=== PATIENT | male | born 1965 | race Caucasian/White ===

== ENCOUNTER 2019-05-12 12:09 | Inpatient (IN) ==
[2019-05-12] MEDS ORDERED: IOPAMIDOL 100 ML BOTTLE IV ONE (12:10)
[2019-05-12 13:12] LABS: Basophils # (Auto) 0.08 K/mcL (0.00-0.30); Basophils % (Auto) 0.4 % (0.0-2.0); Eosinophils # (Auto) 0.23 K/mcL (0.00-0.70); Eosinophils % (Auto) 1.3 % (0.0-7.0); Granulocytes % (Auto) 80.7 % (38.0-78.0); Hematocrit 41.6 % (40.1-51.0); Hemoglobin 14.1 g/dL (13.7-17.5); Lymphocytes % (Auto) 10.1 % (15.5-49.0); Mean Cell Volume 89.7 fL (80.0-100.0); Mean Corpuscular HGB Conc 33.9 g/dL (31.0-36.0); Mean Platelet Volume 9.9 fL (7.4-10.4); Monocytes # (Auto) 1.34 K/mcL (0.10-0.90); Monocytes % (Auto) 7.5 % (1.0-12.0); Platelet Count 319 K/mcL (140-440); RBC 4.64 M/mcL (4.63-6.08); Red Cell Distribution Width 12.6 % (11.5-14.5); WBC 17.9 K/mcL (4.50-11.00)
[2019-05-12 13:20] LABS: POC Blood Urea Nitrogen 17 mg/dl (6-20); POC CO2 26 mmol/L (22-30); POC Calcium, Ionized 1.13 mmol/L (1.16-1.32); POC Chloride 97 mmol/L (96-108); POC Creatinine 0.9 mg/dl (0.7-1.2); POC Glucose, Random 107 mg/dL (70-105); POC Potassium 4.3 mmol/L (3.3-5.1); POC Sodium 133 mmol/L (133-145)
[2019-05-12 13:36] LABS: ALT/SGPT 15 U/l (0-40); AST/SGOT 13 U/l (0-37); Alkaline Phosphatase 71 U/L (39-117); Bilirubin,Total 0.5 mg/dL (0.0-1.0); Blood Urea Nitrogen 16 mg/dl (6-20); Calcium 9.6 mg/dl (8.6-10.4); Carbon Dioxide 24 mmol/L (22-30); Globulin 4.1 gm/dL (2.2-3.7); Glomerular Filtration Rate 96; Glucose 105 mg/dL (70-105)
[2019-05-12 13:38] LABS: Chloride 95 mmol/L (96-108)
--- NOTE | 2019-05-12 14:00 | Emergency Department Note ---
Abdominal Pain HPI - General Chief Complaint: Abdominal Pain Stated Complaint: abd pain, possible bowel obstruction Time Seen by Provider: 05/12/19 12:26 Source: patient Mode of arrival: ambulatory Limitations: no limitations - History of Present Illness HPI Narrative: 54-year old patient presenting to the [facility] emergency department with a chief complaint of abdominal pain. Patient reports the pain is acute. Patient has had symptoms for 1-2 days. Patient noting pain is cramping. Patient reporting pain is moderate. Patient with exacerbating factors of nothing. Patient with ameliorating factors of nothing. Patient with associated symptoms of bloating and no BM. Patient without associated symptoms of nausea, vomiting, diarrhea, fever, blood in stool, hematemesis, dysuria, frequency, hematuria, weight loss, cough, shortness of breath, orthopnea, exertional component. - Related Data Home Medications Medication Instructions Recorded Confirmed No Known Home Meds 10/04/18 05/12/19 Allergies Allergy/AdvReac Type Severity Reaction Status Date / Time Seasonal Allergy Unknown unknown Uncoded 10/04/18 09:55 Review of Systems All systems ED: reviewed and negative except as stated. Abdominal Pain PMH - Past Medical History PMFSH Narrative: All Active Problems Bowel obstruction (Acute) - Social History Smoking status: Former smoker Physical Exam Vital signs are assessed for evidence of hemodynamic instability. General: Alert, interactive, appropriate Head: Atraumatic, normocephalic Eyes: Extraocular movements intact, PERRLA Neck: Trachea midline, full range of motion Chest: Symmetrical chest wall rise, clear to auscultation bilateral Cardiovascular: Patient with excellent perfusion to the extremities, tachycardia Abdomen: Patient primarily with distention Extremities: Full range of motion joints, warm well perfused Neuro: Alert, oriented x3, cranial nerves II through XII grossly intact, normal gait Psychiatric: Normal affect normal mood Limitations: no limitations Course Vital Signs Temperature 97.7 F 05/12/19 12:09 Pulse Rate 111 H 05/12/19 12:09 Respiratory Rate 18 05/12/19 12:09 Blood Pressure 119/83 05/12/19 12:09 Pulse Oximetry (%) 99 05/12/19 12:09 Temperature 98.7 F 05/12/19 19:47 Pulse Rate 99 H 05/12/19 19:47 Respiratory Rate 18 05/12/19 19:47 Blood Pressure 108/65 05/12/19 19:47 Pulse Oximetry (%) 94 05/12/19 19:47 Abdominal Pain - MDM Narrative Medical decision making narrative: Initial work-up for this issue included consideration for the following laboratory evaluation CBC, CMP, as well as imaging. Pt sent in with concern for plain film as outpatient and symptoms suggestive of SBO. CT abd with contrast obtained. Pt with SBO. I discussed the case with Dr. Harkins and the consensus is to admit the pt to the hospital for ongoing inpatient evaluation and management. - Lab Data Result diagrams: 05/12/19 12:45 05/12/19 12:45 Lab Results 05/12/19 05/12/19 05/12/19 Range/Units 12:45 12:45 12:45 WBC 17.9 H (4.50-11.00) K/mcL RBC 4.64 (4.63-6.08) M/mcL Hgb 14.1 (13.7-17.5) g/dL Hct 41.6 (40.1-51.0) % POC Hct 44.0 (41.0-55.0) % MCV 89.7 (80.0-100.0) fL MCH 30.4 (26.0-34.0) pg MCHC 33.9 (31.0-36.0) g/dL RDW 12.6 (11.5-14.5) % Plt Count 319 (140-440) K/mcL MPV 9.9 (7.4-10.4) fL Gran % 80.7 H (38.0-78.0) % Lymph % (Auto) 10.1 L (15.5-49.0) % [place] % (Auto) 7.5 (1.0-12.0) % Eos % (Auto) 1.3 (0.0-7.0) % Baso % (Auto) 0.4 (0.0-2.0) % Gran # 14.40 H (1.80-8.00) K/mcL Lymph # (Auto) 1.80 (1.50-4.80) K/mcL [place] # (Auto) 1.34 H (0.10-0.90) K/mcL Eos # (Auto) 0.23 (0.00-0.70) K/mcL Baso # (Auto) 0.08 (0.00-0.30) K/mcL POC Sodium 133 (133-145) mmol/L Sodium 134 (133-145) mmol/L POC Potassium 4.3 (3.3-5.1) mmol/L Potassium 4.4 (3.3-5.1) mmol/L POC Chloride 97 (96-108) mmol/L Chloride 95 L (96-108) mmol/L Carbon Dioxide 24 (22-30) mmol/L POC Total CO2 26 (22-30) mmol/L Anion Gap 15.0 (8-16) POC BUN 17 (6-20) mg/dl BUN 16 (6-20) mg/dl Creatinine 0.9 (0.7-1.2) mg/dl POC Creatinine 0.9 (0.7-1.2) mg/dl GFR Calculation 96 Glucose 105 (70-105) mg/dL POC Glucose 107 H (70-105) mg/dL Calcium 9.6 (8.6-10.4) mg/dl POC WB Ioniz Calcium 1.13 L (1.16-1.32) mmol/L Total Bilirubin 0.5 (0.0-1.0) mg/dL AST 13 (0-37) U/l ALT 15 (0-40) U/l Alkaline Phosphatase 71 (39-117) U/L Total Protein 8.1 (5.9-8.4) gm/dL Albumin 4.0 (3.2-5.2) gm/dL Globulin 4.1 H (2.2-3.7) gm/dL Albumin/Globulin Ratio 1.0 (1.0-2.3) TSH 0.83 (0.27-5.01) uIU/ml Disposition Pt seen by [employer]/PA only: No Clinical Impression: Small bowel obstruction Abdominal pain Qualifiers: Abdominal location: generalized Qualified Code(s): R10.84 - Generalized abdominal pain Disposition: Xfer As Inpt ([facility]) Condition: Fair
--- NOTE | 2019-05-12 14:11 | Cat Scan Report ---
CLINICAL INFORMATION: Abdominal pain COMPARISON: None. TECHNIQUE: Following enteric contrast, 80 cc of Isovue-370 were injected intravenously, and 60 seconds later, 0.625 mm helical slices were obtained from the mid heart through the subtrochanteric regions. Following reconstruction, 2.5 mm sagittal, coronal and axial reformatted images were processed and reviewed at bone, lung and soft tissue windows. Five minutes later, 0.625 mm helical slices were obtained from the mid heart through the kidneys and viewed at soft tissue windows.The exam was performed using radiation dose optimization techniques including, but not limited to, automated exposure control, adjustment of the mA and/or kV according to patient size and use of iterative reconstruction technique. FINDINGS: Lung bases show no abnormality - no effusion. The visualized heart is grossly normal. Abdominal images show a few small simple cysts in the liver ranging up to 8 mm in the left hepatic lobe. Gallbladder and bile ducts are normal. Both kidneys, adrenal glands, spleen and pancreas are normal in size, configuration and attenuation without focal lesion. The aorta is normal diameter of the scattered calcific plaque in the abdominal aorta. Aortic branches are grossly normal Pelvic images show prostate is mildly enlarged with a transverse dimension 5.1 cm. Urinary bladder is normal. The stomach, duodenum, jejunum and proximal ileum are moderately dilated also with thickening of the wall and flank circulares folds. Transition point is in the mid ileum in the central false pelvis (coronal image 52 and axial image 82. The ileum distal to this point is decompressed. There is less than normal amount stool present in the colon. There is a 6.3 cm interloop abscess in the central false pelvis which drapes around dilated small bowel loops and is also juxtaposed to the the superior sigmoid colon. Sigmoid colon also demonstrates moderate diverticulosis. Moderate free fluid and inflammation in the perisigmoid fat either represents diverticulitis or secondary to small bowel inflammation. Bone windows show grade 1 L4-5 spondylolisthesis with broad disc protrusion resulting in moderate central canal severe bilateral IV foraminal narrowing impinging exiting L4 nerve roots. IMPRESSION: 1. Partial small bowel obstruction of the mid ileum possibly related to adhesion or stricture. Small bowel loops also demonstrate moderate thickening of the wall and plicae labeling associate folds with adjacent mesenteric inflammation. Patient could have infectious or inflammatory enteritis. A 6 cm abscess in the central false pelvis juxtaposed to both small bowel loops and the superior sigmoid colon. 2. Sigmoid diverticulosis. There is also possible additional diverticulitis generating the abscess and pelvic inflammation. 3. Grade 1 L4-5 spondylolisthesis and broad disc protrusion resulting in moderate central canal and severe bilateral IV foraminal narrowing impinging exiting L4 nerve roots Interpreted and Authenticated by: Sheldon Campos 05/12/19
[2019-05-12] MEDS ORDERED: ONDANSETRON 4 MG/2 ML VIAL IV PRN (14:29)
[2019-05-12] MEDS ORDERED: PIPERACILLIN SODIUM/TAZOBACTAM 4.5 GM in DEXTROSE 5% IN WATER 50 ML IV ONE (14:34)
[2019-05-12] MEDS: 0.9 % SODIUM CHLORIDE 1,000 ML IV SCH ×5 (15:49→23:58)
--- NOTE | 2019-05-12 18:16 | General Surg History&Physical ---
History of Present Illness Patient information: Note initiated : 05/12/19 at 6:16 pm Service Date, if different from initiated Date: [] Patient: Ramakrishna Tinajero a 54 y/o M admitted on 05/12/19 for abd pain, possible bowel obstruction. Chief Complaint: [] HPI: Mr. Tinajero is a 54 year old M admitted with pelvic abscess and small bowel obstruction with suspected perforated diverticulitis with abscess.patient gives a one-week history of lower abdominal pain. He states that last he developed severe lower mid abdominal pain that was associated with sweats and chills and fever. The pain continued and worsened throughout the week. He is on able to pass gas or bowel movement since onset of symptoms. He has had severe nausea without vomiting. He's been unable to heat and has had very little to drink since onset of symptoms. Patient was seen in the emergency room and noted to have a tender lower abdomen with white count 17,000. CT of the abdomen showed dilated proximal bowel down to the terminal ileum. There is a 6.3 cm interloop abscess associated with the distal small bowel and the sigmoid colon. There is also free fluid and inflammation in the mesentery of the sigmoid which is possibly primary but may be secondary. Patient has a major pelvic abscess causing small bowel obstruction and distal colonic obstruction. Also. He is counseled for exploratory laparotomy with probable drainage of abscess and potentially segmental sigmoid resection with colostomy. He agrees to proceed with the operation. Review of Systems All systems PM: reviewed and no additional remarkable complaints except as stated (negative except for symptoms noted above) Past History Past medical history: No chronic medical illnesses known but patient has not seen a primary physician Past surgical history: OT IF right femur many years ago Past family history: Mother age 72 without known illness. Father age 75 without known illness. 3 siblings, one of whom has hypertension Past social history: Smoked previously but has not used any tobacco since 2003 No history of alcohol use. Regular use of marijuana Medications and Allergies Home Medications Medication Instructions Recorded Confirmed Type No Known Home Meds 10/04/18 05/12/19 History Allergies Allergy/AdvReac Type Severity Reaction Status Date / Time Seasonal Allergy Unknown unknown Uncoded 10/04/18 09:55 Exam Temp Pulse Resp BP Pulse Ox 97.7 F 106 H 18 132/80 97 05/12/19 16:34 05/12/19 16:34 05/12/19 16:34 05/12/19 16:34 05/12/19 16:34 - General physical appearance well developed, well nourished, no distress - Eyes PERRL, normal ocular movement - ENT normal pinna, normal nares, normal mucosa, no hearing loss, no congestion - Head Head exam IM: Present: atraumatic, normocephalic - Neck no masses, no bruits, trachea midline, no lymphadenopathy, no venous distension - Cardiovascular Cardiovascular exam IM: Present: normal rate and rhythm - Respiratory normal expansion, normal respiratory effort, clear to percussion, clear to a uscultation - Abdomen Abdomen: Present: soft, tender, bowel sounds, masses (tender mass with fullness and lower abdomen above the bladder with associated guarding; active bowel sounds) Hernia: Present: none - Genitourinary Present: normal penis with no external lesions - Integumentary Present: no rash, no growths, no abnormal pigmentation - Neurologic Present: normal coordination, normal sensation - Musculoskeletal Present: normal gait, normal posture - Psychiatric Present: oriented to time, oriented to person, oriented to place, speech is normal, memory intact Assessment and Plan (1) Pelvic abscess in male The abscess is not amenable to percutaneous drainage without intestinal injury. He also has near complete obstruction of small bowel which will need to be released. Patient is counseled for exploratory laparotomy with drainage of the abscess and probable resection of sigmoid with colostomy. He is advised that he will need to have his colostomy for 8-12 weeks before re-anastomosis Status: Acute (2) Perforation of sigmoid colon due to diverticulitis 00. Zosyn 3.375 g IV every 6 hours Check EKG, chest x-ray, baseline labs and thyroid panel Status: Acute (3) Small bowel obstruction Status: Acute
[2019-05-12] MEDS ORDERED: PROMETHAZINE 25 MG/ML VIAL IV PRN (18:27)
[2019-05-12] MEDS: ACETAMINOPHEN 1,000 MG/100 ML BOTTLE IV SCH ×2 (19:23→23:49)
[2019-05-12] MEDS: PIPERACILLIN SODIUM/TAZOBACTAM 3.375 GM in DEXTROSE 5% IN WATER 50 ML IV SCH ×2 (19:32→23:58)
[2019-05-12 20:03] LABS: INR 1.1 (0.9-1.1); Prothrombin Time 14.8 sec (11.9-14.5)
[2019-05-12] MEDS ORDERED: DOCUSATE SODIUM 100 MG CAPSULE PO SCH (21:00)
[2019-05-12] MEDS ORDERED: SENNOSIDES 1 TABLET PO SCH (21:00)
[2019-05-12] MEDS: 0.9 % SODIUM CHLORIDE 10 ML SYRINGE IV SCH (22:21)
[2019-05-13] MEDS: 0.9 % SODIUM CHLORIDE 1,000 ML IV SCH ×5 (01:32→18:55)
[2019-05-13] MEDS: HYDROmorphone 2 MG/ML VIAL IV PRN ×2 (04:39→08:53)
[2019-05-13] MEDS ORDERED: IPRATROPIUM/ALBUTEROL 3 ML AMPUL.NEB NEB PRN ×3 (05:27→19:15)
[2019-05-13] MEDS ORDERED: SCOPOLAMINE 1 PATCH PATCH TOPICAL PRN ×2 (05:27→19:15)
[2019-05-13] MEDS: 0.9 % SODIUM CHLORIDE 10 ML SYRINGE IV SCH ×3 (06:05→21:17)
[2019-05-13] MEDS: ACETAMINOPHEN 1,000 MG/100 ML BOTTLE IV SCH ×4 (06:05→20:44)
[2019-05-13] MEDS: PIPERACILLIN SODIUM/TAZOBACTAM 3.375 GM in DEXTROSE 5% IN WATER 50 ML IV SCH ×4 (06:05→23:11)
[2019-05-13 06:25] LABS: Basophils # (Auto) 0.06 K/mcL (0.00-0.30); Basophils % (Auto) 0.4 % (0.0-2.0); Eosinophils # (Auto) 0.37 K/mcL (0.00-0.70); Eosinophils % (Auto) 2.2 % (0.0-7.0); Hematocrit 34.7 % (40.1-51.0); Hemoglobin 11.6 g/dL (13.7-17.5); Lymphocytes # (Auto) 1.61 K/mcL (1.50-4.80); Lymphocytes % (Auto) 9.7 % (15.5-49.0); Mean Cell Volume 91.6 fL (80.0-100.0); Mean Corpuscular HGB Conc 33.4 g/dL (31.0-36.0); Mean Platelet Volume 10.2 fL (7.4-10.4); Monocytes # (Auto) 1.28 K/mcL (0.10-0.90); Monocytes % (Auto) 7.7 % (1.0-12.0); Platelet Count 274 K/mcL (140-440); RBC 3.79 M/mcL (4.63-6.08); Red Cell Distribution Width 12.8 % (11.5-14.5); WBC 16.6 K/mcL (4.50-11.00)
[2019-05-13 06:43] LABS: ALT/SGPT 13 U/l (0-40); AST/SGOT 13 U/l (0-37); Albumin 3.2 gm/dL (3.2-5.2); Alkaline Phosphatase 61 U/L (39-117); Bilirubin,Direct < 0.2 mg/dL (0.0-0.3); Bilirubin,Total 0.4 mg/dL (0.0-1.0); Blood Urea Nitrogen 14 mg/dl (6-20); Calcium 8.3 mg/dl (8.6-10.4); Carbon Dioxide 22 mmol/L (22-30); Chloride 97 mmol/L (96-108); Globulin 3.3 gm/dL (2.2-3.7); Glomerular Filtration Rate 101; Glucose 82 mg/dL (70-105); Lactate Dehydrogenase 132 U/L (94-250); Phosphorous 3.1 mg/dL (2.7-4.5); Triglycerides 126 mg/dl (<150); Uric Acid 4.9 mg/dL (2.5-8.0)
[2019-05-13] MEDS: PANTOPRAZOLE 40 MG VIAL IV SCH ×2 (06:47→17:51)
[2019-05-13 07:17] LABS: Appearance,Urine CLEAR; Bacteria,Urine 0 /hpf (0); Bilirubin,Urine NEG (NEG); Color,Urine YELLOW; Culture Indicated,Urine NO; Glucose,Urine (UA) NEGATIVE (NEG); Ketones,Urine 80 mg/dL (NEG); Leukocyte Esterase,Urine NEG /uL (NEG); Mucus,Urine FEW /hpf (0); Nitrate,Urine NEG (NEG); Protein,Urine 30 mg/dL (NEG); Specific Gravity,Urine 1.031 (1.000-1.035); Urine Blood NEG mg/dL (<0.03); Urine Hyaline Cast 1 /lpf (0-2); Urine RBC 2 /hpf (0-1); Urine Squamous Epithelial Cell 0 /hpf (0-4); Urine Transitional Epi Cells < 1 /hpf (0-2); Urine WBC 1 /hpf (0-4)
--- NOTE | 2019-05-13 08:54 | XRay Report ---
CLINICAL INFORMATION: Preop COMPARISON: None. TECHNIQUE: Portable chest FINDINGS: The heart size, mediastinum and pulmonary vessels are unremarkable. The lungs are clear. There are no effusions. Severe bilateral glenohumeral degeneration noted. IMPRESSION: Normal chest. Interpreted and Authenticated by: Sheldon Campos 05/13/19
[2019-05-13] MEDS ORDERED: MAGNESIUM SULFATE 2 GM/50 ML BAG IV ONE ×2 (13:56→15:30)
[2019-05-13] MEDS ORDERED: PROPOFOL 200 MG/20 ML VIAL IV ONE (15:30)
[2019-05-13] MEDS ORDERED: ROPIVACAINE HCL/PF 20 ML VIAL IJ ONE (15:30)
[2019-05-13] MEDS ORDERED: LIDOCAINE HCL/PF 100 MG/5 ML SYRINGE IV ONE (15:30)
[2019-05-13] MEDS ORDERED: PHENYLEPHRINE 10 MG/ML VIAL IV ONE (15:30)
[2019-05-13] MEDS ORDERED: KETAMINE 100 MG/ML ML IV ONE (15:30)
[2019-05-13] MEDS ORDERED: fentaNYL 250 MCG/5 ML VIAL IV ONE (15:30)
[2019-05-13] MEDS ORDERED: ONDANSETRON 4 MG/2 ML VIAL IV ONE (15:30)
[2019-05-13] MEDS ORDERED: DEXAMETHASONE 10 MG/ML VIAL IV ONE (15:30)
[2019-05-13] MEDS ORDERED: ROCURONIUM 10 MG/ML ML IV ONE (15:30)
[2019-05-13] MEDS ORDERED: MEPERIDINE 25 MG/ML SYRINGE IV PRN ×2 (17:21→19:15)
[2019-05-13] MEDS ORDERED: ACETAMINOPHEN 1,000 MG/100 ML BOTTLE IV ONE (17:21)
[2019-05-13] MEDS ORDERED: FLUMAZENIL 0.1 MG/ML ML IV PRN ×2 (17:21→19:15)
[2019-05-13] MEDS ORDERED: METHOCARBAMOL 1,000 MG/10 ML VIAL IV PRN ×2 (17:21→19:15)
[2019-05-13] MEDS ORDERED: NALOXONE HCL 0.4 MG/ML VIAL IV PRN ×2 (17:21→19:15)
[2019-05-13] MEDS ORDERED: ePHEDrine 50 MG/ML AMPUL IV PRN ×2 (17:21→19:15)
[2019-05-13] MEDS ORDERED: diphenhydrAMINE 50 MG/ML VIAL IV PRN ×2 (17:21→19:15)
[2019-05-13] MEDS ORDERED: ONDANSETRON 4 MG/2 ML VIAL IV PRN ×3 (17:21→19:15)
[2019-05-13] MEDS ORDERED: METOPROLOL TARTRATE 5 MG/5 ML VIAL IV PRN ×2 (17:21→19:15)
[2019-05-13] MEDS ORDERED: ATROPINE SULFATE 0.4 MG/ML VIAL IV PRN ×2 (17:21→19:15)
[2019-05-13] MEDS ORDERED: HYDROmorphone 2 MG/ML VIAL IV PRN ×3 (17:21→19:15)
[2019-05-13] MEDS ORDERED: LACTATED RINGERS 1,000 ML IV SCH ×2 (17:30→19:15)
--- NOTE | 2019-05-13 17:41 | Brief Operative Note ---
Date of procedure: 05/13/19 Pre-op diagnosis: diverticulitis with abscess;small bowel obstruction Post-op diagnosis: same Procedure: sigmoidectomy with colostomy;drainage of pelvic abscess Grafts/Implants: No (charlette drain x1) Anesthesia: GETA Findings: perforated sigmoid colon with large pelvic abscess small bowel obstruction due to inflammation from pelvic abscess Complications: none Surgeon: Felicia Harkins Estimated blood loss (cc): 100 Specimens Removed/Pathology: other (cultures of abscess fluid) Condition: stable Disposition: PACU
[2019-05-13] MEDS ORDERED: KETOROLAC 30 MG/ML VIAL IV ONE (18:15)
[2019-05-13] MEDS ORDERED: fentaNYL 100 MCG/2 ML VIAL IV ONE (18:17)
[2019-05-13] MEDS: fentaNYL 100 MCG/2 ML VIAL IV PRN ×2 (18:19→18:30)
[2019-05-13] MEDS ORDERED: fentaNYL 100 MCG/2 ML VIAL IV PRN (19:15)
[2019-05-13] MEDS ORDERED: PROMETHAZINE 25 MG/ML VIAL IV PRN ×2 (19:15)
[2019-05-13] MEDS ORDERED: HYDROmorphone 2 MG/ML VIAL ONE ×2 (19:32→21:38)
[2019-05-13] MEDS: KETOROLAC 15 MG/ML VIAL IV PRN (23:07)
[2019-05-14] MEDS: ACETAMINOPHEN 1,000 MG/100 ML BOTTLE IV SCH ×5 (00:06→23:58)
[2019-05-14] MEDS ORDERED: BENZOCAINE 1 SPRAY BOTTLE TOPICAL PRN (00:44)
[2019-05-14] MEDS: 0.9 % SODIUM CHLORIDE 1,000 ML IV SCH ×3 (02:02→17:39)
[2019-05-14] MEDS: HYDROmorphone 2 MG/ML VIAL IV PRN ×4 (02:38→19:23)
[2019-05-14] MEDS: 0.9 % SODIUM CHLORIDE 10 ML SYRINGE IV SCH ×3 (04:47→22:09)
[2019-05-14] MEDS: KETOROLAC 15 MG/ML VIAL IV PRN ×3 (04:47→22:08)
[2019-05-14] MEDS: PIPERACILLIN SODIUM/TAZOBACTAM 3.375 GM in DEXTROSE 5% IN WATER 50 ML IV SCH ×4 (06:06→23:57)
[2019-05-14 06:32] LABS: Basophils # (Auto) 0.06 K/mcL (0.00-0.30); Basophils % (Auto) 0.3 % (0.0-2.0); Eosinophils # (Auto) 0.03 K/mcL (0.00-0.70); Eosinophils % (Auto) 0.2 % (0.0-7.0); Granulocytes % (Auto) 89.9 % (38.0-78.0); Hematocrit 32.9 % (40.1-51.0); Hemoglobin 10.7 g/dL (13.7-17.5); Lymphocytes # (Auto) 1.15 K/mcL (1.50-4.80); Lymphocytes % (Auto) 6.3 % (15.5-49.0); Mean Cell Volume 91.9 fL (80.0-100.0); Mean Corpuscular HGB Conc 32.5 g/dL (31.0-36.0); Mean Platelet Volume 10.2 fL (7.4-10.4); Monocytes % (Auto) 3.3 % (1.0-12.0); Platelet Count 282 K/mcL (140-440); RBC 3.58 M/mcL (4.63-6.08); WBC 18.2 K/mcL (4.50-11.00)
[2019-05-14 06:52] LABS: ALT/SGPT 10 U/l (0-40); AST/SGOT 13 U/l (0-37); Alkaline Phosphatase 58 U/L (39-117); Bilirubin,Direct < 0.2 mg/dL (0.0-0.3); Bilirubin,Total 0.2 mg/dL (0.0-1.0); Blood Urea Nitrogen 12 mg/dl (6-20); Calcium 8.1 mg/dl (8.6-10.4); Carbon Dioxide 19 mmol/L (22-30); Chloride 102 mmol/L (96-108); Globulin 3.1 gm/dL (2.2-3.7); Glomerular Filtration Rate 107; Glucose 108 mg/dL (70-105); Lactate Dehydrogenase 138 U/L (94-250); Triglycerides 117 mg/dl (<150); Uric Acid 5.2 mg/dL (2.5-8.0)
[2019-05-14] MEDS: PANTOPRAZOLE 40 MG VIAL IV SCH ×2 (08:32→16:31)
[2019-05-14] MEDS ORDERED: PNEUMOCOCCAL 23-VAL P-SAC VAC 0.5 ML SYRINGE IM ONE (10:00)
[2019-05-14] MEDS ORDERED: FLU VACC QS2019-20(6MOS UP)/PF 60 MCG/0.5 ML SYRINGE IM ONE (10:00)
--- NOTE | 2019-05-14 15:23 | General Surgery Progress Note ---
Subjective Patient reports: feels better, still having pain, no flatus, no bowel movement ( already G), afebrile Narrative: Note initiated : 05/14/19 at 3:21 pm Service Date, if different from initiated Date: [] Patient: Ramakrishna Tinajero 54 y/o M admitted on 05/12/19 for abd pain, possible bowel obstruction. Chief Complaint: [patient is clinically stable Except for pain. He denies nausea. He's not had any output through his stoma. He denies shortness of breath or chest discomfort. NURIA drainage is serous. White blood count 18.2, hemoglobin 10.7, hematocrit 32.9, inpatient panel normal.] Objective Temp Pulse Resp BP Pulse Ox 99.2 F H 83 20 115/71 94 05/14/19 12:00 05/14/19 02:37 05/14/19 12:00 05/14/19 12:00 05/14/19 12:00 - Additional Data Intake & Output - Last 24 hours: Intake & Output 05/12/19 05/13/19 05/14/19 05/15/19 05:59 05:59 05:59 05:59 Intake Total 2450 3650 1280 Output Total 675 1420 90 Balance 1775 2230 1190 Weight 154 lb 8 oz 156 lb - General physical appearance well developed, well nourished, no distress - Eyes PERRL, normal ocular movement - ENT normal pinna, normal nares, normal mucosa, no hearing loss, no congestion - Neck no masses, no bruits, trachea midline, no lymphadenopathy, no venous distension - Respiratory normal expansion, normal respiratory effort, clear to percussion, other (coarse tubular breath sounds and fine wheezes bilaterally) - Cardiovascular Cardiovascular exam: Present: normal rate and rhythm, RRR, +S1, +S2. Absent: JVD, tachycardia - Abdomen tender ( tender. Incision; incision otherwise looks normal; drainage and drain is serous; cultures not available) - Rectum normal sphincter tone, no hemorrhoids, no tenderness, no masses, no bleeding - Integumentary no rash, no growths, no abnormal pigmentation - Neurologic normal coordination, normal sensation - Musculoskeletal normal gait, normal posture - Psychiatric oriented to time, oriented to person, oriented to place, speech is normal, memory intact - Labs 05/14/19 04:31 03/14/20 04:31 Diabetes panel 05/14/19 Range/Units 04:31 Sodium 136 (133-145) mmol/L Potassium 4.5 (3.3-5.1) mmol/L Chloride 102 (96-108) mmol/L Carbon Dioxide 19 L (22-30) mmol/L BUN 12 (6-20) mg/dl Creatinine 0.7 (0.7-1.2) mg/dl Glucose 108 H (70-105) mg/dL Calcium 8.1 L (8.6-10.4) mg/dl AST 13 (0-37) U/l ALT 10 (0-40) U/l Alkaline Phosphatase 58 (39-117) U/L Total Protein 6.1 (5.9-8.4) gm/dL Albumin 3.0 L (3.2-5.2) gm/dL Triglycerides 117 (<150) mg/dl Calcium panel 05/14/19 Range/Units 04:31 Calcium 8.1 L (8.6-10.4) mg/dl Phosphorus 4.0 (2.7-4.5) mg/dL Albumin 3.0 L (3.2-5.2) gm/dL Pituitary panel 05/14/19 Range/Units 04:31 Sodium 136 (133-145) mmol/L Potassium 4.5 (3.3-5.1) mmol/L Chloride 102 (96-108) mmol/L Carbon Dioxide 19 L (22-30) mmol/L BUN 12 (6-20) mg/dl Creatinine 0.7 (0.7-1.2) mg/dl Glucose 108 H (70-105) mg/dL Calcium 8.1 L (8.6-10.4) mg/dl Adrenal panel 05/14/19 Range/Units 04:31 Sodium 136 (133-145) mmol/L Potassium 4.5 (3.3-5.1) mmol/L Chloride 102 (96-108) mmol/L Carbon Dioxide 19 L (22-30) mmol/L BUN 12 (6-20) mg/dl Creatinine 0.7 (0.7-1.2) mg/dl Glucose 108 H (70-105) mg/dL Calcium 8.1 L (8.6-10.4) mg/dl Total Bilirubin 0.2 (0.0-1.0) mg/dL AST 13 (0-37) U/l ALT 10 (0-40) U/l Alkaline Phosphatase 58 (39-117) U/L Total Protein 6.1 (5.9-8.4) gm/dL Albumin 3.0 L (3.2-5.2) gm/dL Assessment and Plan (1) Pelvic abscess in male Status: Acute Assessment and plan: Continue antibiotic therapy and drainage. Discontinue Plummer catheter Current Visit: Yes (2) Perforation of sigmoid colon due to diverticulitis Status: Acute Assessment and plan: Stoma appears to be healthy Current Visit: Yes (3) Small bowel obstruction Status: Acute Current Visit: Yes - Time Spent With Patient Total time spent is greater than 50% in coordination of care (as documented) at patient's floor/unit and/or counseling patient:
[2019-05-14] MEDS ORDERED: IPRATROPIUM/ALBUTEROL 3 ML AMPUL.NEB NEB PRN (15:25)
[2019-05-15] MEDS: 0.9 % SODIUM CHLORIDE 1,000 ML IV SCH ×4 (01:23→19:02)
[2019-05-15] MEDS: HYDROmorphone 2 MG/ML VIAL IV PRN ×5 (03:50→21:01)
[2019-05-15] MEDS: ACETAMINOPHEN 1,000 MG/100 ML BOTTLE IV SCH ×3 (05:59→19:14)
[2019-05-15] MEDS: PIPERACILLIN SODIUM/TAZOBACTAM 3.375 GM in DEXTROSE 5% IN WATER 50 ML IV SCH ×3 (05:59→18:04)
[2019-05-15] MEDS: 0.9 % SODIUM CHLORIDE 10 ML SYRINGE IV SCH ×2 (06:00→14:58)
[2019-05-15 06:50] LABS: ALT/SGPT 10 U/l (0-40); AST/SGOT 15 U/l (0-37); Albumin 2.8 gm/dL (3.2-5.2); Alkaline Phosphatase 62 U/L (39-117); Bilirubin,Direct < 0.2 mg/dL (0.0-0.3); Bilirubin,Total 0.2 mg/dL (0.0-1.0); Blood Urea Nitrogen 10 mg/dl (6-20); Calcium 7.8 mg/dl (8.6-10.4); Carbon Dioxide 21 mmol/L (22-30); Chloride 104 mmol/L (96-108); Globulin 2.7 gm/dL (2.2-3.7); Glomerular Filtration Rate 114; Glucose 75 mg/dL (70-105); Lactate Dehydrogenase 148 U/L (94-250); Phosphorous 1.5 mg/dL (2.7-4.5); Triglycerides 160 mg/dl (<150); Uric Acid 5.9 mg/dL (2.5-8.0)
[2019-05-15 07:22] LABS: Basophils % (Auto) 0 % (0.0-2.0); Hemoglobin 10.7 g/dL (13.7-17.5); Mean Cell Volume 91.2 fL (80.0-100.0); Mean Corpuscular HGB Conc 33.4 g/dL (31.0-36.0); Platelet Count 298 K/mcL (140-440); RBC 3.51 M/mcL (4.63-6.08); Red Cell Distribution Width 13.2 % (11.5-14.5); WBC 15.2 K/mcL (4.50-11.00)
[2019-05-15] MEDS: PANTOPRAZOLE 40 MG VIAL IV SCH ×2 (08:42→19:14)
[2019-05-15] MEDS: KETOROLAC 15 MG/ML VIAL IV PRN ×2 (08:42→18:17)
[2019-05-15] MEDS: POTASSIUM PHOSPHATE 40 MEQ in DEXTROSE 5% IN WATER 500 ML IV SCH ×2 (10:19→14:57)
[2019-05-15] MEDS ORDERED: MAGNESIUM CITRATE 300 ML ORAL.SOL PO ONE (13:08)
--- NOTE | 2019-05-15 13:16 | General Surgery Progress Note ---
Subjective Patient reports: feels better, pain is less, flatus, no bowel movement, afebrile Narrative: Note initiated : 05/15/19 at 1:14 pm Service Date, if different from initiated Date: [] Patient: Ramakrishna Tinajero 54 y/o M admitted on 05/12/19 for abd pain, possible bowel obstruction. Chief Complaint: [patient is continuing to improve. He has more bowel sounds And has flatus through his stoma. NURIA drainage is serous. He denies nausea. White blood count 15.2, hemoglobin 10.7, hematocrit 32, phosphorus 1.5] Objective Temp Pulse Resp BP Pulse Ox 99.1 F H 79 18 126/80 92 05/15/19 12:00 05/15/19 12:00 05/15/19 12:00 05/15/19 12:00 05/15/19 12:00 - Additional Data Intake & Output - Last 24 hours: Intake & Output 05/13/19 05/14/19 05/15/19 05/16/19 05:59 05:59 05:59 05:59 Intake Total 2450 3650 4030 1050 Output Total 675 1420 2725 415 Balance 1775 2230 1305 635 Weight 154 lb 8 oz 156 lb 160 lb 8 oz - General physical appearance well developed, well nourished, no distress - Eyes PERRL, normal ocular movement - ENT normal pinna, normal nares, normal mucosa, no hearing loss, no congestion - Neck no masses, no bruits, trachea midline, no lymphadenopathy, no venous distension - Respiratory normal expansion, normal respiratory effort, clear to auscultation - Cardiovascular Cardiovascular exam: Present: normal rate and rhythm, RRR, +S1, +S2. Absent: JVD, tachycardia - Abdomen tender (moderate incisional tenderness), bowel sounds (present), surgical scars (none), masses (none), distended (. Mild distention; active bowel sounds; a NURIA drainage is serous) - Integumentary no rash, no growths, no abnormal pigmentation - Neurologic normal coordination, normal sensation - Musculoskeletal normal gait, normal posture - Psychiatric oriented to time, oriented to person, oriented to place, speech is normal, memory intact - Labs 05/15/19 04:54 05/15/19 04:54 Diabetes panel 05/15/19 Range/Units 04:54 Sodium 141 (133-145) mmol/L Potassium 3.4 (3.3-5.1) mmol/L Chloride 104 (96-108) mmol/L Carbon Dioxide 21 L (22-30) mmol/L BUN 10 (6-20) mg/dl Creatinine 0.6 L (0.7-1.2) mg/dl Glucose 75 (70-105) mg/dL Calcium 7.8 L (8.6-10.4) mg/dl AST 15 (0-37) U/l ALT 10 (0-40) U/l Alkaline Phosphatase 62 (39-117) U/L Total Protein 5.5 L (5.9-8.4) gm/dL Albumin 2.8 L (3.2-5.2) gm/dL Triglycerides 160 H (<150) mg/dl Calcium panel 05/15/19 Range/Units 04:54 Calcium 7.8 L (8.6-10.4) mg/dl Phosphorus 1.5 L (2.7-4.5) mg/dL Albumin 2.8 L (3.2-5.2) gm/dL Pituitary panel 05/15/19 Range/Units 04:54 Sodium 141 (133-145) mmol/L Potassium 3.4 (3.3-5.1) mmol/L Chloride 104 (96-108) mmol/L Carbon Dioxide 21 L (22-30) mmol/L BUN 10 (6-20) mg/dl Creatinine 0.6 L (0.7-1.2) mg/dl Glucose 75 (70-105) mg/dL Calcium 7.8 L (8.6-10.4) mg/dl Adrenal panel 05/15/19 Range/Units 04:54 Sodium 141 (133-145) mmol/L Potassium 3.4 (3.3-5.1) mmol/L Chloride 104 (96-108) mmol/L Carbon Dioxide 21 L (22-30) mmol/L BUN 10 (6-20) mg/dl Creatinine 0.6 L (0.7-1.2) mg/dl Glucose 75 (70-105) mg/dL Calcium 7.8 L (8.6-10.4) mg/dl Total Bilirubin 0.2 (0.0-1.0) mg/dL AST 15 (0-37) U/l ALT 10 (0-40) U/l Alkaline Phosphatase 62 (39-117) U/L Total Protein 5.5 L (5.9-8.4) gm/dL Albumin 2.8 L (3.2-5.2) gm/dL Assessment and Plan (1) Pelvic abscess in male Status: Acute Assessment and plan: Continue antibiotic therapy and drainage. Discontinue Plummer catheter Current Visit: Yes (2) Perforation of sigmoid colon due to diverticulitis Status: Acute Assessment and plan: Stoma appears to be healthy Current Visit: Yes (3) Small bowel obstruction Status: Acute Current Visit: Yes - Time Spent With Patient Total time spent is greater than 50% in coordination of care (as documented) at patient's floor/unit and/or counseling patient:
[2019-05-16] MEDS: PIPERACILLIN SODIUM/TAZOBACTAM 3.375 GM in DEXTROSE 5% IN WATER 50 ML IV SCH ×4 (00:08→17:53)
[2019-05-16] MEDS: ACETAMINOPHEN 1,000 MG/100 ML BOTTLE IV SCH ×4 (00:09→18:05)
[2019-05-16] MEDS: 0.9 % SODIUM CHLORIDE 10 ML SYRINGE IV SCH ×4 (00:09→20:31)
[2019-05-16] MEDS: 0.9 % SODIUM CHLORIDE 1,000 ML IV SCH ×3 (01:26→19:20)
[2019-05-16] MEDS: HYDROmorphone 2 MG/ML VIAL IV PRN ×3 (01:34→21:07)
[2019-05-16] MEDS: KETOROLAC 15 MG/ML VIAL IV PRN ×2 (04:06→10:52)
[2019-05-16] MEDS: PANTOPRAZOLE 40 MG VIAL IV SCH ×2 (08:15→17:53)
--- NOTE | 2019-05-16 15:10 | General Surgery Progress Note ---
Subjective Patient reports: feels better, pain is less, tolerating liquids well, flatus, bowel movement, afebrile Narrative: Note initiated : 05/16/19 at 3:08 pm Service Date, if different from initiated Date: [] Patient: Ramakrishna Tinajero 54 y/o M admitted on 05/12/19 for abd pain, possible bowel obstruction. Chief Complaint: [patient is stable and improved. He is afebrile. He is tolerating liquids well. White blood count 15.0, hemoglobin 10.7, hematocrit 32] Objective Temp Pulse Resp BP Pulse Ox 98.7 F 85 14 142/92 96 05/16/19 11:46 05/16/19 11:46 05/16/19 11:46 05/16/19 11:46 05/16/19 11:46 - Additional Data Intake & Output - Last 24 hours: Intake & Output 05/14/19 05/15/19 05/16/19 05/17/19 05:59 05:59 05:59 05:59 Intake Total 3650 4030 4298.0909 1165 Output Total 1420 2725 3165 1305 Balance 2230 1305 1133.0909 -140 Weight 156 lb 160 lb 8 oz 163 lb 3.2 oz - General physical appearance well developed, well nourished, no distress - Eyes PERRL, normal ocular movement - ENT normal pinna, normal nares, normal mucosa, no hearing loss, no congestion - Neck no masses, no bruits, trachea midline, no lymphadenopathy, no venous distension - Respiratory normal expansion, normal respiratory effort, clear to auscultation - Cardiovascular Cardiovascular exam: Present: normal rate and rhythm, RRR, +S1, +S2. Absent: JVD, tachycardia - Abdomen tender (mild incisional tenderness. Otherwise abdominal exam is benign. NURIA drainage is serous) - Integumentary no rash, no growths, no abnormal pigmentation - Neurologic normal coordination, normal sensation - Musculoskeletal normal gait, normal posture - Psychiatric oriented to time, oriented to person, oriented to place, speech is normal, memory intact - Labs 05/15/19 04:54 05/15/19 04:54 Assessment and Plan (1) Pelvic abscess in male Status: Acute Assessment and plan: Continue antibiotic therapy and drainage. Full liquid diet. IV to TKO. CBC and IP tomorrow Current Visit: Yes (2) Perforation of sigmoid colon due to diverticulitis Status: Acute Assessment and plan: Stoma appears to be healthy Current Visit: Yes (3) Small bowel obstruction Status: Acute Current Visit: Yes - Time Spent With Patient Total time spent is greater than 50% in coordination of care (as documented) at patient's floor/unit and/or counseling patient:
[2019-05-16] MEDS: oxyCODONE HCL 5 MG TABLET PO PRN (16:02)
[2019-05-17] MEDS: ACETAMINOPHEN 1,000 MG/100 ML BOTTLE IV SCH ×5 (00:30→23:43)
[2019-05-17] MEDS: PIPERACILLIN SODIUM/TAZOBACTAM 3.375 GM in DEXTROSE 5% IN WATER 50 ML IV SCH ×5 (00:31→23:44)
[2019-05-17] MEDS: oxyCODONE HCL 5 MG TABLET PO PRN ×3 (00:31→21:31)
[2019-05-17] MEDS: KETOROLAC 15 MG/ML VIAL IV PRN (03:51)
[2019-05-17] MEDS: 0.9 % SODIUM CHLORIDE 10 ML SYRINGE IV SCH ×3 (05:32→22:46)
[2019-05-17 07:40] LABS: Basophils % (Auto) 1.7 % (0.0-2.0); Eosinophils # (Auto) 0.42 K/mcL (0.00-0.70); Eosinophils % (Auto) 3.6 % (0.0-7.0); Granulocytes % (Auto) 69.6 % (38.0-78.0); Hemoglobin 11.8 g/dL (13.7-17.5); Lymphocytes # (Auto) 2.13 K/mcL (1.50-4.80); Lymphocytes % (Auto) 18.4 % (15.5-49.0); Mean Cell Volume 90.4 fL (80.0-100.0); Mean Corpuscular HGB Conc 33.7 g/dL (31.0-36.0); Mean Platelet Volume 9.6 fL (7.4-10.4); Monocytes # (Auto) 0.78 K/mcL (0.10-0.90); Monocytes % (Auto) 6.7 % (1.0-12.0); Platelet Count 350 K/mcL (140-440); RBC 3.87 M/mcL (4.63-6.08); WBC 11.6 K/mcL (4.50-11.00)
[2019-05-17] MEDS: PANTOPRAZOLE 40 MG VIAL IV SCH ×2 (08:21→18:10)
[2019-05-17 08:42] LABS: ALT/SGPT 13 U/l (0-40); AST/SGOT 18 U/l (0-37); Albumin 2.6 gm/dL (3.2-5.2); Albumin/Globulin Ratio 0.8 (1.0-2.3); Alkaline Phosphatase 46 U/L (39-117); Bilirubin,Direct < 0.2 mg/dL (0.0-0.3); Bilirubin,Total 0.3 mg/dL (0.0-1.0); Blood Urea Nitrogen 3 mg/dl (6-20); Calcium 8.5 mg/dl (8.6-10.4); Carbon Dioxide 23 mmol/L (22-30); Chloride 101 mmol/L (96-108); Globulin 3.1 gm/dL (2.2-3.7); Glomerular Filtration Rate 114; Glucose 87 mg/dL (70-105); Lactate Dehydrogenase 201 U/L (94-250); Phosphorous 3.2 mg/dL (2.7-4.5); Triglycerides 170 mg/dl (<150)
[2019-05-17] MEDS: SIMETHICONE 80 MG TAB.CHEW CHEWED SCH ×3 (09:30→21:31)
[2019-05-17] MEDS: METOCLOPRAMIDE 10 MG/2 ML VIAL IV SCH ×3 (09:39→18:11)
--- NOTE | 2019-05-17 11:08 | XRay Report ---
CLINICAL INFORMATION: Partial small bowel obstruction COMPARISON: 05/12/2019 FINDINGS: The stomach and small bowel are moderately dilated with scattered air-fluid levels. The distal small bowel and colon are relatively decompressed. No free air. Surgical drain overlies the central pelvis and there appears be a colostomy in the left lower quadrant. IMPRESSION: Atypical ileus versus recurrent distal small bowel obstruction Interpreted and Authenticated by: Sheldon Campos 05/17/19
--- NOTE | 2019-05-17 11:50 | Surgical Pathology Report ---
HISTOLOGY SPECIMEN MICROSCOPIC DIAGNOSIS COLON, SIGMOID, SEGMENTAL RESECTION: -- ACUTE DIVERTICULITIS WITH A PERICOLONIC ABSCESS, ACUTE SEROSITIS AND SEROSAL ADHESIONS. -- MARGINS VIABLE. -- FOUR PERICOLONIC LYMPH NODES WITH REACTIVE LYMPHOID HYPERPLASIA. (DMT:adj) PROCEDURAL IMPRESSION Perforation of sigmoid colon due to diverticulitis. GROSS DESCRIPTION Received in formalin labeled sigmoid colon, is a length of sigmoid with each end received stapled. The specimen measures 10 cm in length by 7.5 cm greatest diameter. The serosal surface is notable for a large exudative area measuring 8.5 x 6.5 cm. The remainder of the surface is grossly unremarkable. The stapled margins are removed and the specimen is open to reveal fecal material. The wall is 0.3 cm thick. The mucosa is aquino and plicated. There are areas of possible diverticula identified. There are four candidate lymph nodes identified measuring from 0.2 to 0.7 cm. [place] Farmer sections submitted in five cassettes: A1 - margins; A2 - areas of possible diverticula; A3 - printing supplies sales representative sections of exudate; A4 - random sections; A5 - candidate lymph nodes. (SCB:sln) Electronically Signed by: Tariq Ring M.D.
--- NOTE | 2019-05-17 12:39 | General Surgery Progress Note ---
Subjective Patient reports: still having pain, tolerating liquids well, flatus, bowel movement, afebrile Narrative: Note initiated : 05/17/19 at 12:37 pm Service Date, if different from initiated Date: [] Patient: Ramakrishna Tinajero 54 y/o M admitted on 05/12/19 for abd pain, possible bowel obstruction. Chief Complaint: [Patient has significant lower abdominal pain radiating through to his pelvis and back earlier today. He has continued to have increased flatus and is stomal appliance and he is having liquid bowel movements. Abdominal x-ray shows dilated loops of small bowel compatible with postoperative ileus. White blood count 11.6, hemoglobin 11.8, hematocrit 35.] Objective Temp Pulse Resp BP Pulse Ox 97.7 F 80 18 115/79 94 05/17/19 11:17 05/17/19 11:17 05/17/19 08:00 05/17/19 11:17 05/17/19 11:17 - Additional Data Intake & Output - Last 24 hours: Intake & Output 05/15/19 05/16/19 05/17/19 05/18/19 05:59 05:59 05:59 05:59 Intake Total 4030 4298.0909 3615 Output Total 2725 3165 4775 Balance 1305 1133.0909 -1160 Weight 160 lb 8 oz 163 lb 3.2 oz 162 lb - General physical appearance well developed, well nourished, moderate distress, moderate pain - Eyes PERRL, normal ocular movement - ENT normal pinna, normal nares, normal mucosa, no hearing loss, no congestion - Neck no masses, no bruits, trachea midline, no lymphadenopathy, no venous distension - Respiratory normal expansion, normal respiratory effort, clear to auscultation - Cardiovascular Cardiovascular exam: Present: normal rate and rhythm, RRR, +S1, +S2. Absent: JVD, tachycardia - Abdomen tender (tender abdominal incision; good active bowel; mild distention) - Rectum normal sphincter tone, no hemorrhoids, no tenderness, no masses, no bleeding - Integumentary no rash, no growths, no abnormal pigmentation - Neurologic normal coordination, normal sensation - Musculoskeletal normal gait, normal posture - Psychiatric oriented to time, oriented to person, oriented to place, speech is normal, mem ory intact - Labs 05/17/19 06:15 05/17/19 06:15 Diabetes panel 05/17/19 Range/Units 06:15 Sodium 137 (133-145) mmol/L Potassium 3.6 (3.3-5.1) mmol/L Chloride 101 (96-108) mmol/L Carbon Dioxide 23 (22-30) mmol/L BUN 3 L (6-20) mg/dl Creatinine 0.6 L (0.7-1.2) mg/dl Glucose 87 (70-105) mg/dL Calcium 8.5 L (8.6-10.4) mg/dl AST 18 (0-37) U/l ALT 13 (0-40) U/l Alkaline Phosphatase 46 (39-117) U/L Total Protein 5.7 L (5.9-8.4) gm/dL Albumin 2.6 L (3.2-5.2) gm/dL Triglycerides 170 H (<150) mg/dl Calcium panel 05/17/19 Range/Units 06:15 Calcium 8.5 L (8.6-10.4) mg/dl Phosphorus 3.2 (2.7-4.5) mg/dL Albumin 2.6 L (3.2-5.2) gm/dL Pituitary panel 05/17/19 Range/Units 06:15 Sodium 137 (133-145) mmol/L Potassium 3.6 (3.3-5.1) mmol/L Chloride 101 (96-108) mmol/L Carbon Dioxide 23 (22-30) mmol/L BUN 3 L (6-20) mg/dl Creatinine 0.6 L (0.7-1.2) mg/dl Glucose 87 (70-105) mg/dL Calcium 8.5 L (8.6-10.4) mg/dl Adrenal panel 05/17/19 Range/Units 06:15 Sodium 137 (133-145) mmol/L Potassium 3.6 (3.3-5.1) mmol/L Chloride 101 (96-108) mmol/L Carbon Dioxide 23 (22-30) mmol/L BUN 3 L (6-20) mg/dl Creatinine 0.6 L (0.7-1.2) mg/dl Glucose 87 (70-105) mg/dL Calcium 8.5 L (8.6-10.4) mg/dl Total Bilirubin 0.3 (0.0-1.0) mg/dL AST 18 (0-37) U/l ALT 13 (0-40) U/l Alkaline Phosphatase 46 (39-117) U/L Total Protein 5.7 L (5.9-8.4) gm/dL Albumin 2.6 L (3.2-5.2) gm/dL Assessment and Plan (1) Pelvic abscess in male Status: Acute Assessment and plan: Continue antibiotic therapy and drainage. Reglan 10 mg IV every 6 hours 7. Methacholine 160 mg 4 times daily. Check abdominal x-rays in the morning. Possible discharge tomorrow morning Current Visit: Yes (2) Perforation of sigmoid colon due to diverticulitis Status: Acute Assessment and plan: Stoma appears to be healthy Current Visit: Yes (3) Small bowel obstruction Status: Acute Current Visit: Yes - Time Spent With Patient Total time spent is greater than 50% in coordination of care (as documented) at patient's floor/unit and/or counseling patient:
[2019-05-18] MEDS: METOCLOPRAMIDE 10 MG/2 ML VIAL IV SCH ×4 (00:43→17:38)
[2019-05-18] MEDS: PIPERACILLIN SODIUM/TAZOBACTAM 3.375 GM in DEXTROSE 5% IN WATER 50 ML IV SCH ×3 (04:56→17:39)
[2019-05-18] MEDS: ACETAMINOPHEN 1,000 MG/100 ML BOTTLE IV SCH ×3 (04:56→18:09)
[2019-05-18 07:35] LABS: Basophils # (Auto) 0.16 K/mcL (0.00-0.30); Basophils % (Auto) 1.4 % (0.0-2.0); Eosinophils # (Auto) 0.46 K/mcL (0.00-0.70); Eosinophils % (Auto) 4.1 % (0.0-7.0); Granulocytes % (Auto) 70.9 % (38.0-78.0); Hematocrit 36.1 % (40.1-51.0); Hemoglobin 12.1 g/dL (13.7-17.5); Lymphocytes # (Auto) 1.83 K/mcL (1.50-4.80); Lymphocytes % (Auto) 16.2 % (15.5-49.0); Mean Cell Volume 91.4 fL (80.0-100.0); Mean Corpuscular HGB Conc 33.5 g/dL (31.0-36.0); Mean Platelet Volume 9.6 fL (7.4-10.4); Monocytes # (Auto) 0.83 K/mcL (0.10-0.90); Monocytes % (Auto) 7.4 % (1.0-12.0); Platelet Count 395 K/mcL (140-440); RBC 3.95 M/mcL (4.63-6.08); Red Cell Distribution Width 13.2 % (11.5-14.5); WBC 11.3 K/mcL (4.50-11.00)
[2019-05-18] MEDS: 0.9 % SODIUM CHLORIDE 10 ML SYRINGE IV SCH ×2 (08:09→14:53)
[2019-05-18] MEDS: PANTOPRAZOLE 40 MG VIAL IV SCH ×2 (08:10→17:38)
[2019-05-18 08:11] LABS: ALT/SGPT 15 U/l (0-40); AST/SGOT 19 U/l (0-37); Alkaline Phosphatase 47 U/L (39-117); Bilirubin,Direct < 0.2 mg/dL (0.0-0.3); Bilirubin,Total 0.3 mg/dL (0.0-1.0); Calcium 8.8 mg/dl (8.6-10.4); Carbon Dioxide 26 mmol/L (22-30); Chloride 100 mmol/L (96-108); Globulin 3.1 gm/dL (2.2-3.7); Glucose 85 mg/dL (70-105); Lactate Dehydrogenase 228 U/L (94-250); Phosphorous 3.9 mg/dL (2.7-4.5); Triglycerides 194 mg/dl (<150)
[2019-05-18 08:12] LABS: Blood Urea Nitrogen 5 mg/dl (6-20); Glomerular Filtration Rate 101
[2019-05-18] MEDS: oxyCODONE HCL 5 MG TABLET PO PRN ×2 (09:39→14:32)
[2019-05-18] MEDS: SIMETHICONE 80 MG TAB.CHEW CHEWED SCH ×2 (09:40→14:34)
--- NOTE | 2019-05-18 17:35 | Discharge Summary ---
Providers - Providers Patient information: Note initiated : 05/18/19 at 5:32 pm Service Date, if different from initiated Date: [] Patient: Ramakrishna Tinajero 54 y/o M admitted on 05/12/19 for abd pain, possible bowel obstruction. Chief Complaint: [] Date of admission: 05/12/19 Discharge date: 05/18/19 Attending physician: Felicia Harkins Hospitalization Hospital Course: , 54-year-old male admitted with one-week history of recurrent abdominal pain with nausea and vomiting. He was seen in the emergency room and was found to acute diverticulitis with abscess. Small bowel obstruction. He was explored on April with finding of a perforated sigmoid colon with a large pelvic abscess. There was small bowel obstruction due to acute inflammation from the pelvic abscess. Sigmoidectomy with colostomy and drainage of pelvic abscess was carried out. Patient has done exceptionally well. White blood count 11.3, hemoglobin 12.1, hematocrit 36.1. Patient is tolerating diet and is having regular bowel movements. He is afebrile and stable for discharge home. Discharge diagnosis: acute diverticulitis with perforation and abscess. Secondary discharge diagnosis: Small bowel obstruction due to inflammatory changes from interloop abscess Reason for admission: abdominal pain, nausea and vomiting Procedures: Exploratory laparotomy with sigmoid colectomy and colostomy. . Drainage of pelvic abscess Pertinent studies/significant findings: CT of abdomen and pelvis with IV contrast Complications: None Exam Temp Pulse Resp BP Pulse Ox 97.8 F 86 18 128/92 96 05/18/19 12:00 05/18/19 12:00 05/18/19 12:00 05/18/19 12:00 05/18/19 12:00 - General physical appearance well developed, well nourished, no distress - Eyes PERRL, normal ocular movement - ENT normal pinna, normal nares, normal mucosa, no hearing loss, no congestion - Head Head exam IM: Present: atraumatic, normocephalic - Neck no masses, no bruits, trachea midline, no lymphadenopathy, no venous distension - Cardiovascular Cardiovascular exam IM: Present: normal rate and rhythm - Respiratory normal expansion, normal respiratory effort, clear to percussion, clear to auscultation - Abdomen Abdomen: Present: soft, tender (mild tenderness of the incision), bowel sounds, surgical scars Hernia: Present: none - Genitourinary Present: normal penis with no external lesions - Rectum Rectum: Present: normal sphincter tone, no hemorrhoids, no tenderness, no masses, no bleeding - Integumentary Present: no rash, no growths, no abnormal pigmentation - Neurologic Present: normal coordination, normal sensation - Musculoskeletal Present: normal gait, normal posture - Psychiatric Present: oriented to time, oriented to person, oriented to place, speech is normal, memory intact Discharge Plan - Patient/Caregiver Discharge Instructions Activity: increase activity as tolerated Diet: Low Fiber Prescriptions: oxyCODONE HCL [Roxicodone] 10 mg PO Q4HP PRN #40 tablet PRN Reason: Per Pain Protocol Transmission Status: Pending to [facility] 2005 - Follow up Plan Follow up with: Vesna Tapia PA-C [Primary Care Provider] - Felicia Harkins MD [Physician] - 05/30/19 (call to verify appt) Disposition: Home, Self-Care Prognosis: Good Rehab Potential: Good I certify that the patient requires SNF services.: No Overall status at discharge: patient is progressing back to baseline Pending Studies Resuscitation Status Full Code Diet Full Liquid Diet Start ThuMay 15 1511 Benzocaine (Cetacaine) 1 spray TOPICAL PRN PRN PRN Reason: Sore Throat Last Admin: 05/14/19 01:08 Dose: 1 spray Documented by: CIELO Hydromorphone HCl (Dilaudid) 1 - 1.5 mg IV Q2HP PRN; Protocol PRN Reason: Per Pain Protocol Last Admin: 05/16/19 21:07 Dose: 1 mg Documented by: Admin: 05/16/19 01:34 Dose: 1 mg Documented by: Admin: 05/15/19 21:01 Dose: 1 mg Documented by: Admin: 05/15/19 16:29 Dose: 1 mg Documented by: [email or web address] Admin: 05/15/19 10:20 Dose: 1 mg Documented by: [email or web address] Admin: 05/15/19 05:59 Dose: 1 mg Documented by: Admin: 05/15/19 03:50 Dose: 1 mg Documented by: Admin: 05/14/19 19:23 Dose: 1 mg Documented by: Admin: 05/14/19 13:37 Dose: 1 mg Documented by: [email or web address] Admin: 05/14/19 08:32 Dose: 1 mg Documented by: [email or web address] Admin: 05/14/19 02:38 Dose: 1 mg Documented by: CIELO Piperacillin Sod/Tazobactam (Sod 3.375 gm/ Dextrose) 50 mls @ 100 mls/hr IV Q6H JENN; Protocol Last Infusion: 05/18/19 12:35 Dose: 0 mls/hr Documented by: Admin: 05/18/19 12:04 Dose: 100 mls/hr Documented by: Infusion: 05/18/19 05:26 Dose: 0 mls/hr Documented by: Admin: 05/18/19 04:56 Dose: 100 mls/hr Documented by: Infusion: 05/18/19 00:14 Dose: 100 mls/hr Documented by: Admin: 05/17/19 23:44 Dose: 100 mls/hr Documented by: Infusion: 05/17/19 18:41 Dose: 100 mls/hr Documented by: Admin: 05/17/19 18:11 Dose: 100 mls/hr Documented by: Infusion: 05/17/19 13:13 Dose: 100 mls/hr Documented by: Admin: 05/17/19 12:43 Dose: 100 mls/hr Documented by: Infusion: 05/17/19 05:49 Dose: 100 mls/hr Documented by: Admin: 05/17/19 05:19 Dose: 100 mls/hr Documented by: Infusion: 05/17/19 01:01 Dose: 100 mls/hr Documented by: Admin: 05/17/19 00:31 Dose: 100 mls/hr Documented by: Infusion: 05/16/19 18:23 Dose: 100 mls/hr Documented by: Admin: 05/16/19 17:53 Dose: 100 mls/hr Documented by: Infusion: 05/16/19 12:28 Dose: 100 mls/hr Documented by: Admin: 05/16/19 11:58 Dose: 100 mls/hr Documented by: Infusion: 05/16/19 06:24 Dose: 100 mls/hr Documented by: Admin: 05/16/19 05:54 Dose: 100 mls/hr Documented by: Infusion: 05/16/19 00:40 Dose: 0 mls/hr Documented by: Admin: 05/16/19 00:08 Dose: 100 mls/hr Documented by: Infusion: 05/15/19 18:45 Dose: 0 mls/hr Documented by: Admin: 05/15/19 18:04 Dose: 100 mls/hr Documented by: Infusion: 05/15/19 13:15 Dose: 100 mls/hr Documented by: Admin: 05/15/19 12:45 Dose: 100 mls/hr Documented by: Infusion: 05/15/19 06:29 Dose: 100 mls/hr Documented by: Admin: 05/15/19 05:59 Dose: 100 mls/hr Documented by: Infusion: 05/15/19 00:30 Dose: 0 mls/hr Documented by: Admin: 05/14/19 23:57 Dose: 100 mls/hr Documented by: Infusion: 05/14/19 18:10 Dose: 100 mls/hr Documented by: Admin: 05/14/19 17:40 Dose: 100 mls/hr Documented by: Infusion: 05/14/19 12:34 Dose: 100 mls/hr Documented by: Admin: 05/14/19 12:04 Dose: 100 mls/hr Documented by: Infusion: 05/14/19 06:36 Dose: 100 mls/hr Documented by: Admin: 05/14/19 06:06 Dose: 100 mls/hr Documented by: Infusion: 05/13/19 23:45 Dose: 0 mls/hr Documented by: Admin: 05/13/19 23:11 Dose: 100 mls/hr Documented by: CIELO Acetaminophen (Ofirmev) 1,000 mg in 100 mls @ 200 mls/hr IV Q6H JENN; Protocol Last Infusion: 05/18/19 13:00 Dose: 0 mls/hr Documented by: Admin: 05/18/19 12:30 Dose: 200 mls/hr Documented by: Infusion: 05/18/19 05:26 Dose: 0 mls/hr Documented by: Admin: 05/18/19 04:56 Dose: 200 mls/hr Documented by: Infusion: 05/18/19 00:13 Dose: 200 mls/hr Documented by: Admin: 05/17/19 23:43 Dose: 200 mls/hr Documented by: Infusion: 05/17/19 18:40 Dose: 200 mls/hr Documented by: Admin: 05/17/19 18:10 Dose: 200 mls/hr Documented by: Infusion: 05/17/19 13:13 Dose: 200 mls/hr Documented by: Admin: 05/17/19 12:43 Dose: 200 mls/hr Documented by: Infusion: 05/17/19 05:48 Dose: 200 mls/hr Documented by: Admin: 05/17/19 05:18 Dose: 200 mls/hr Documented by: Infusion: 05/17/19 01:00 Dose: 200 mls/hr Documented by: Admin: 05/17/19 00:30 Dose: 200 mls/hr Documented by: Infusion: 05/16/19 18:35 Dose: 200 mls/hr Documented by: Admin: 05/16/19 18:05 Dose: 200 mls/hr Documented by: Infusion: 05/16/19 12:28 Dose: 200 mls/hr Documented by: Admin: 05/16/19 11:58 Dose: 200 mls/hr Documented by: Infusion: 05/16/19 06:23 Dose: 200 mls/hr Documented by: Admin: 05/16/19 05:53 Dose: 200 mls/hr Documented by: Infusion: 05/16/19 00:40 Dose: 0 mls/hr Documented by: Admin: 05/16/19 00:09 Dose: 200 mls/hr Documented by: Infusion: 05/15/19 19:50 Dose: 0 mls/hr Documented by: Admin: 05/15/19 19:14 Dose: 200 mls/hr Documented by: Infusion: 05/15/19 14:45 Dose: 200 mls/hr Documented by: Admin: 05/15/19 14:15 Dose: 200 mls/hr Documented by: Infusion: 05/15/19 06:29 Dose: 200 mls/hr Documented by: Admin: 05/15/19 05:59 Dose: 200 mls/hr Documented by: Infusion: 05/15/19 00:35 Dose: 0 mls/hr Documented by: Admin: 05/14/19 23:58 Dose: 200 mls/hr Documented by: Infusion: 05/14/19 18:15 Dose: 0 mls/hr Documented by: Admin: 05/14/19 17:40 Dose: 200 mls/hr Documented by: Infusion: 05/14/19 12:26 Dose: 200 mls/hr Documented by: Admin: 05/14/19 11:56 Dose: 200 mls/hr Documented by: Infusion: 05/14/19 06:45 Dose: 0 mls/hr Documented by: Admin: 05/14/19 06:05 Dose: 200 mls/hr Documented by: Infusion: 05/14/19 00:40 Dose: 0 mls/hr Documented by: Admin: 05/14/19 00:06 Dose: 200 mls/hr Documented by: Admin: 05/13/19 20:44 Dose: Not Given Documented by: CIELO Metoclopramide HCl (Reglan) 10 mg IV Q6 JENN Last Admin: 05/18/19 12:04 Dose: 10 mg Documented by: [email or web address] Admin: 05/18/19 04:57 Dose: 10 mg Documented by: Admin: 05/18/19 00:43 Dose: 10 mg Documented by: Admin: 05/17/19 18:11 Dose: 10 mg Documented by: [email or web address] Admin: 05/17/19 12:42 Dose: 10 mg Documented by: [email or web address] Admin: 05/17/19 09:39 Dose: 10 mg Documented by: [email or web address] Oxycodone HCl (Roxicodone) 10 mg PO Q4HP PRN; Protocol PRN Reason: Per Pain Protocol Last Admin: 05/18/19 14:32 Dose: 10 mg Documented by: Admin: 05/18/19 09:39 Dose: 10 mg Documented by: Admin: 05/17/19 21:31 Dose: 10 mg Documented by: Admin: 05/17/19 08:22 Dose: 10 mg Documented by: Admin: 05/17/19 00:31 Dose: 10 mg Documented by: Admin: 05/16/19 16:02 Dose: 10 mg Documented by: [email or web address] Pantoprazole Sodium (Protonix) 40 mg IV BIDAC [facility] Last Admin: 05/18/19 08:10 Dose: 40 mg Documented by: Admin: 05/17/19 18:10 Dose: 40 mg Documented by: Admin: 05/17/19 08:21 Dose: 40 mg Documented by: Admin: 05/16/19 17:53 Dose: 40 mg Documented by: Admin: 05/16/19 08:15 Dose: 40 mg Documented by: Admin: 05/15/19 19:14 Dose: 40 mg Documented by: Admin: 05/15/19 08:42 Dose: 40 mg Documented by: Admin: 05/14/19 16:31 Dose: 40 mg Documented by: Admin: 05/14/19 08:32 Dose: 40 mg Documented by: [email or web address] Simethicone (Mylicon) 160 mg CHEWED QIDP [facility] Stop: 05/20/19 09:29 Last Admin: 05/18/19 14:34 Dose: 160 mg Documented by: Admin: 05/18/19 09:40 Dose: 160 mg Documented by: Admin: 05/17/19 21:31 Dose: 160 mg Documented by: Admin: 05/17/19 15:51 Dose: 160 mg Documented by: Admin: 05/17/19 09:30 Dose: 160 mg Documented by: [email or web address] Sodium Chloride (Saline Flush) 10 ml IV Q8 [facility] Last Admin: 05/18/19 14:53 Dose: 10 ml Documented by: Admin: 05/18/19 08:09 Dose: 10 ml Documented by: Admin: 05/17/19 22:46 Dose: 10 ml Documented by: Admin: 05/17/19 18:09 Dose: 10 ml Documented by: Admin: 05/17/19 05:32 Dose: 10 ml Documented by: Admin: 05/16/19 20:31 Dose: 10 ml Documented by: Admin: 05/16/19 16:03 Dose: Not Given Documented by: Admin: 05/16/19 05:54 Dose: 10 ml Documented by: Admin: 05/16/19 00:09 Dose: 10 ml Documented by: Admin: 05/15/19 14:58 Dose: 10 ml Documented by: Admin: 05/15/19 06:00 Dose: 10 ml Documented by: Admin: 05/14/19 22:09 Dose: 10 ml Documented by: Admin: 05/14/19 16:32 Dose: 10 ml Documented by: Admin: 05/14/19 04:47 Dose: 10 ml Documented by: Admin: 05/13/19 21:17 Dose: Not Given Documented by: CIELO Shift Summary 05/18/19 17:00 Shift Summary by Elaine Paul Midline abdominal incision with kashmir and tegaderm intact. NURIA drain to RLQ with serous drainage. Colostomy to LLQ with liquid brown stool. Voiding per urinal. Ad ildefonso in room/halls. Medicated with Roxicodone 10mg x2 with Simethicone x2. Also receiving scheduled Ofirmev and Reglan. WBC 11.3, scheduled Zosyn. SL x2. VSS. Bedside report to follow. Initialized on 05/18/19 17:00 - END OF NOTE
--- NOTE | 2019-05-23 14:40 | Operative Note ---
DATE OF OPERATION: 05/13/2019 PREOPERATIVE DIAGNOSES: Diverticulitis with abscess and small bowel obstruction. POSTOPERATIVE DIAGNOSES: Diverticulitis with abscess, perforation, and small-bowel obstruction. PROCEDURE: Sigmoidectomy with colostomy and drainage of pelvic abscess. SURGEON: Felicia Harkins M.D. FINDINGS: 1. Perforated sigmoid colon with large pelvic abscess. 2. Small bowel obstruction due to inflammation from pelvic abscess. DESCRIPTION OF PROCEDURE: Under general anesthesia, the patient's abdomen was prepped and draped in a sterile field. A time-out procedure was carried out as per protocol. Palpable mass in the hypogastrium was noted. A lower midline incision was made and pelvis was entered. There was some turbid fluid encountered which was suctioned and cultured. Palpation revealed a very large abscess comprised of the bladder, multiple loops of small bowel and sigmoid colon in the pelvis. The incision was extended in the midline above the umbilicus and the Bookwalter retractor was placed. Using gentle finger dissection, the small bowel was dissected off of the inflamed mass. As the small bowel loops were removed, I could see acute inflammation. I entered a very large abscess cavity. Some of this fluid was suctioned into a trap and preserved for culture. The rest of the abscess cavity was then opened and it compressed mostly of the wall of the mid small bowel at the sigmoid colon and bladder. There were some loculations between the sigmoid and the bladder which were broken up. Copious irrigation was carried out. The small bowel was inspected and it was secondarily infected, but no evidence of perforation. The sigmoid colon was severely thickened and inflamed. It was mobilized laterally until it could be adequately encircled. The sigmoid was divided proximal and distal to the inflamed segment using Contour stapler. The mesocolon was divided using buoyant cautery device. Specimen was passed off. Inflammation of the back wall of the bladder was inspected and the bladder was not involved except for inflammation. All irrigation of the pelvic cavity was carried out. Inspection in the upper abdomen did not reveal any other abnormality. Nasogastric tube was positioned in the stomach. The orifice for the stoma was made in the left lower quadrant. The end of the mobilized sigmoid was brought through the stoma. The wall of the bowel with sutured circumferentially to the peritoneum using interrupted 3-0 silk. A drain was placed in the pelvis. Small bowel was inspected once more and there was no evidence of leak, and no evidence of primary inflammation. A NURIA drain was placed in the pelvis, in the abscess cavity. It was brought out through a separate incision in the right lower quadrant. Sponge, needle, instrument and blade counts were verified as correct. Peritoneum and fascia were closed with running #1 Prolene. The subcutaneous tissue was irrigated and closed with running 2-0 Monocryl. Skin was closed with kashmir. The colostomy was matured by suturing the wall of the colon to the anterior rectus fascia using 6 sutures of 3-0 Prolene circumferentially. The end of the bowel was opened and the full thickness of the bowel wall was sutured to the dermis using running locking 3-0 Vicryl. Stoma appliance was placed. The patient tolerated the procedure well. Tegaderm was placed over the incision. The patient was awakened, transferred to a bed and taken to the postanesthetic care unit in stable, satisfactory condition. LCS:jami Job ID: [id number] Doc ID: [id number] Felicia Harkins M.D.
== END 2019-05-18 18:57 | disposition home or self-care (01) | DRG 329 ==
LOC: ED 12:09 → MEDSUR 16:30
PROVIDERS: ADMIT Family Medicine Adult Medicine; ATTEND Family Medicine Adult Medicine

== ENCOUNTER 2019-08-17 04:58 | Inpatient (IN) ==
--- NOTE | 2019-08-15 10:51 | XRay Report ---
INDICATION: Preoperative evaluation TECHNIQUE: PA and lateral upright chest x-ray COMPARISON: Previous chest x-rays dated 06/17/2019, 05/13/2019 FINDINGS: Lungs: Right basilar infiltrate demonstrated previously is no longer apparent. Lungs are negative. No parenchymal infiltrate or mass. No focal abnormality Heart, vascular: No significant cardiomegaly. Pulmonary vascularity is normal. No pulmonary edema or pulmonary congestion Mediastinum, mary: No mediastinal widening. No hilar mass Pleura:No pleural fluid. No pleural-based mass or calcification Thoracic spine, ribs: No thoracic compression fracture. Ribs are negative. No fracture. No lytic lesion IMPRESSION: Negative PA and lateral chest x-ray Interpreted and Authenticated by: Sheldon Manrique 08/15/19
[2019-08-15 13:18] LABS: Basophils # (Auto) 0.08 K/mcL (0.00-0.30); Basophils % (Auto) 1.1 % (0.0-2.0); Eosinophils # (Auto) 0.37 K/mcL (0.00-0.70); Eosinophils % (Auto) 5.2 % (0.0-7.0); Granulocytes % (Auto) 54.6 % (38.0-78.0); Hematocrit 44.1 % (40.1-51.0); Hemoglobin 14.1 g/dL (13.7-17.5); Lymphocytes # (Auto) 2.32 K/mcL (1.50-4.80); Lymphocytes % (Auto) 32.5 % (15.5-49.0); Mean Cell Volume 92.6 fL (80.0-100.0); Mean Platelet Volume 11.8 fL (7.4-10.4); Monocytes # (Auto) 0.47 K/mcL (0.10-0.90); Monocytes % (Auto) 6.6 % (1.0-12.0); Platelet Count 196 K/mcL (140-440); RBC 4.76 M/mcL (4.63-6.08); Red Cell Distribution Width 13.5 % (11.5-14.5); WBC 7.1 K/mcL (4.50-11.00)
[2019-08-15 13:22] LABS: Prothrombin Time 13.4 sec (11.9-14.5)
[2019-08-15 14:51] LABS: ALT/SGPT 15 U/l (0-40); AST/SGOT 20 U/l (0-37); Albumin 4.6 gm/dL (3.2-5.2); Albumin/Globulin Ratio 1.5 (1.0-2.3); Alkaline Phosphatase 60 U/L (39-117); Bilirubin,Total 0.3 mg/dL (0.0-1.0); Blood Urea Nitrogen 15 mg/dl (6-20); Calcium 10.1 mg/dl (8.6-10.4); Carbon Dioxide 24 mmol/L (22-30); Chloride 100 mmol/L (96-108); Globulin 3.1 gm/dL (2.2-3.7); Glomerular Filtration Rate 101; Glucose 92 mg/dL (70-105)
[2019-08-17] MEDS ORDERED: SCOPOLAMINE 1 PATCH PATCH TOPICAL PRN (05:00)
[2019-08-17] MEDS ORDERED: IPRATROPIUM/ALBUTEROL 3 ML AMPUL.NEB NEB PRN ×2 (05:00→10:40)
[2019-08-17] MEDS ORDERED: PIPERACILLIN SODIUM/TAZOBACTAM 3.375 GM in DEXTROSE 5% IN WATER 50 ML IV SCH (07:00)
[2019-08-17] MEDS ORDERED: metroNIDAZOLE 500 MG/100 ML BAG IV SCH (07:00)
[2019-08-17] MEDS ORDERED: KETAMINE 100 MG/ML ML IV ONE (08:08)
[2019-08-17] MEDS ORDERED: DEXAMETHASONE 10 MG/ML VIAL IV ONE (08:08)
[2019-08-17] MEDS ORDERED: LIDOCAINE HCL/PF 100 MG/5 ML SYRINGE IV ONE (08:08)
[2019-08-17] MEDS ORDERED: GLYCOPYRROLATE 0.2 MG/ML VIAL IV ONE (08:08)
[2019-08-17] MEDS ORDERED: ONDANSETRON 4 MG/2 ML VIAL IV ONE (08:08)
[2019-08-17] MEDS ORDERED: fentaNYL 250 MCG/5 ML VIAL IV ONE (08:08)
[2019-08-17] MEDS ORDERED: PROPOFOL 200 MG/20 ML VIAL IV ONE (08:08)
[2019-08-17] MEDS ORDERED: MIDAZOLAM 2 MG/2 ML VIAL IV ONE (08:08)
[2019-08-17] MEDS ORDERED: ROPIVACAINE HCL/PF 20 ML VIAL IJ ONE (08:08)
[2019-08-17] MEDS ORDERED: ROCURONIUM 10 MG/ML ML IV ONE (08:08)
[2019-08-17] MEDS ORDERED: HYDROmorphone 0.5 MG/0.5 ML SYRINGE IV PRN (10:40)
[2019-08-17] MEDS ORDERED: KETOROLAC 30 MG/ML VIAL IV PRN (10:40)
[2019-08-17] MEDS ORDERED: ACETAMINOPHEN 1,000 MG/100 ML BOTTLE IV ONE (10:40)
[2019-08-17] MEDS ORDERED: MEPERIDINE 25 MG/ML SYRINGE IV PRN (10:40)
[2019-08-17] MEDS ORDERED: METHOCARBAMOL 1,000 MG/10 ML VIAL IV PRN (10:40)
[2019-08-17] MEDS ORDERED: ONDANSETRON 4 MG/2 ML VIAL IV PRN (10:40)
[2019-08-17] MEDS ORDERED: LACTATED RINGERS 1,000 ML IV SCH (10:45)
[2019-08-17] MEDS: fentaNYL 100 MCG/2 ML VIAL IV PRN ×2 (11:16→11:22)
[2019-08-17] MEDS ORDERED: PROMETHAZINE 25 MG/ML VIAL IV PRN (11:22)
[2019-08-17] MEDS ORDERED: LORazepam 2 MG/ML VIAL IV PRN (11:27)
[2019-08-17] MEDS: 0.9 % SODIUM CHLORIDE 1,000 ML IV SCH ×2 (11:56→21:15)
[2019-08-17] MEDS: PIPERACILLIN SODIUM/TAZOBACTAM 3.375 GM in DEXTROSE 5% IN WATER 50 ML IV SCH ×3 (12:21→23:49)
[2019-08-17] MEDS: METOCLOPRAMIDE 10 MG/2 ML VIAL IV SCH ×3 (12:22→23:50)
[2019-08-17] MEDS: HYDROmorphone 1 MG/ML SYRINGE IV PRN ×4 (13:35→23:49)
[2019-08-17] MEDS: 0.9 % SODIUM CHLORIDE 10 ML SYRINGE IV SCH ×2 (13:36→21:16)
--- NOTE | 2019-08-17 17:31 | Brief Operative Note ---
Date of procedure: 08/17/19 Pre-op diagnosis: colostomy status Post-op diagnosis: other (colostomy status) Procedure: colostomy takedown Grafts/Implants: No (moses x1 ) Anesthesia: GETA Complications: none Surgeon: Felicia Harkins Specimens Removed/Pathology: other (colostomy stoma) Condition: stable Disposition: PACU
[2019-08-18] MEDS: ONDANSETRON 4 MG/2 ML VIAL IV PRN ×2 (02:11→16:06)
[2019-08-18] MEDS: HYDROmorphone 1 MG/ML SYRINGE IV PRN ×8 (03:53→22:02)
[2019-08-18] MEDS: PIPERACILLIN SODIUM/TAZOBACTAM 3.375 GM in DEXTROSE 5% IN WATER 50 ML IV SCH (05:30)
[2019-08-18] MEDS: 0.9 % SODIUM CHLORIDE 1,000 ML IV SCH ×4 (05:30→22:08)
[2019-08-18] MEDS: METOCLOPRAMIDE 10 MG/2 ML VIAL IV SCH ×4 (06:01→23:45)
[2019-08-18] MEDS: 0.9 % SODIUM CHLORIDE 10 ML SYRINGE IV SCH ×3 (06:07→20:03)
[2019-08-18 06:53] LABS: Basophils # (Auto) 0.04 K/mcL (0.00-0.30); Basophils % (Auto) 0.3 % (0.0-2.0); Eosinophils # (Auto) 0.04 K/mcL (0.00-0.70); Eosinophils % (Auto) 0.3 % (0.0-7.0); Granulocytes % (Auto) 78.2 % (38.0-78.0); Hematocrit 36.2 % (40.1-51.0); Hemoglobin 12.2 g/dL (13.7-17.5); Lymphocytes # (Auto) 1.81 K/mcL (1.50-4.80); Lymphocytes % (Auto) 14.2 % (15.5-49.0); Mean Cell Volume 88.7 fL (80.0-100.0); Mean Corpuscular HGB Conc 33.7 g/dL (31.0-36.0); Mean Platelet Volume 11.1 fL (7.4-10.4); Monocytes # (Auto) 0.89 K/mcL (0.10-0.90); Platelet Count 183 K/mcL (140-440); RBC 4.08 M/mcL (4.63-6.08); Red Cell Distribution Width 13.2 % (11.5-14.5); WBC 12.7 K/mcL (4.50-11.00)
[2019-08-18 07:22] LABS: ALT/SGPT 11 U/l (0-40); AST/SGOT 16 U/l (0-37); Albumin 3.6 gm/dL (3.2-5.2); Albumin/Globulin Ratio 1.5 (1.0-2.3); Alkaline Phosphatase 48 U/L (39-117); Bilirubin,Direct < 0.2 mg/dL (0.0-0.3); Bilirubin,Total 0.5 mg/dL (0.0-1.0); Blood Urea Nitrogen 18 mg/dl (6-20); Calcium 8.3 mg/dl (8.6-10.4); Carbon Dioxide 22 mmol/L (22-30); Chloride 103 mmol/L (96-108); Globulin 2.4 gm/dL (2.2-3.7); Glomerular Filtration Rate 101; Glucose 89 mg/dL (70-105); Lactate Dehydrogenase 147 U/L (94-250); Phosphorous 3.1 mg/dL (2.7-4.5); Triglycerides 90 mg/dl (<150); Uric Acid 5.1 mg/dL (2.5-8.0)
[2019-08-18] MEDS: ACETAMINOPHEN 1,000 MG/100 ML BOTTLE IV PRN ×3 (10:27→23:38)
--- NOTE | 2019-08-18 14:31 | Surgical Pathology Report ---
HISTOLOGY SPECIMEN MICROSCOPIC DIAGNOSIS COLOSTOMY STOMA, EXCISION: -- BENIGN COLONIC MUCOSA AND SKIN WITH FIBROSIS AND PATCHY MILD CHRONIC INFLAMMATION. -- NO NEOPLASIA OR MALIGNANCY IDENTIFIED. -- SURGICAL MARGINS APPEAR VIABLE. (ACP:sln) CLINICAL HISTORY Colostomy closure. GROSS DESCRIPTION Received in formalin designated as stoma per requisition, is an oriented ellipse of skin that measures 3.7 x 0.7 cm. There is a 2.6 cm open area held together by sutures. Extending from beneath the skin surface is aquino fatty tissue that measures 6 x 5 x 4.1 cm. Extending from the previously mentioned open area of the skin through the aquino fatty tissue is a 4 cm in length by 2 cm in diameter segment of bowel. The end is open. The external surface of the specimen is inked black. Sectioning reveals pink-aquino plicated mucosal surfaces. Stationary Engineer Supervisor sections are submitted in three cassettes: A1 - tips; A2 - member services representative sections showing transition from skin to mucosa surface; A3 - bowel margin. (SCB:sln) Electronically Signed by: Stevenson Olivares M.D.
--- NOTE | 2019-08-18 18:42 | General Surgery Progress Note ---
Subjective Patient reports: feels better, pain is less, no flatus, no bowel movement, afebrile Narrative: Note initiated : 08/18/19 at 6:39 pm Service Date, if different from initiated Date: [] Patient: Ramakrishna Tinajero 54 y/o M admitted on 08/17/19 for Colostomy Closure. Chief Complaint: [patient is stable. He has mild nausea. His pain is better controlled with the IV Tylenol than with dilaudid. His drainage is s erosanguineous.] Objective Temp Pulse Resp BP Pulse Ox 98.1 F 98 H 16 138/89 91 08/18/19 15:38 08/18/19 15:38 08/18/19 15:38 08/18/19 15:38 08/18/19 15:38 - Additional Data Intake & Output - Last 24 hours: Intake & Output 08/16/19 08/17/19 08/18/19 08/19/19 05:59 05:59 05:59 05:59 Intake Total 4750 1200 Output Total 1680 1200 Balance 3070 0 Weight 164 lb 12.8 oz 155 lb 11.2 oz 160 lb 160 lb - General physical appearance well developed, well nourished, moderate distress, moderate pain - Eyes PERRL, normal ocular movement - ENT normal pinna, normal nares, normal mucosa, no hearing loss, no congestion - Neck no masses, no bruits, trachea midline, no lymphadenopathy, no venous distension - Respiratory normal expansion, normal respiratory effort, clear to auscultation - Cardiovascular Cardiovascular exam: Present: normal rate and rhythm (was brought yesterday), RRR (the), +S1, +S2. Absent: JVD, tachycardia - Abdomen tender ( moderate incisional tenderness), bowel sounds, distended - Integumentary no rash, no growths, no abnormal pigmentation - Neurologic normal coordination, normal sensation - Musculoskeletal normal gait, normal posture - Psychiatric oriented to time, oriented to person, oriented to place, speech is normal, memory intact - Labs 08/18/19 05:34 08/18/19 05:34 Diabetes panel 08/18/19 Range/Units 05:34 Sodium 139 (133-145) mmol/L Potassium 3.6 (3.3-5.1) mmol/L Chloride 103 (96-108) mmol/L Carbon Dioxide 22 (22-30) mmol/L BUN 18 (6-20) mg/dl Creatinine 0.8 (0.7-1.2) mg/dl Glucose 89 (70-105) mg/dL Calcium 8.3 L (8.6-10.4) mg/dl AST 16 (0-37) U/l ALT 11 (0-40) U/l Alkaline Phosphatase 48 (39-117) U/L Total Protein 6.0 (5.9-8.4) gm/dL Albumin 3.6 (3.2-5.2) gm/dL Triglycerides 90 (<150) mg/dl Calcium panel 08/18/19 Range/Units 05:34 Calcium 8.3 L (8.6-10.4) mg/dl Phosphorus 3.1 (2.7-4.5) mg/dL Albumin 3.6 (3.2-5.2) gm/dL Pituitary panel 08/18/19 Range/Units 05:34 Sodium 139 (133-145) mmol/L Potassium 3.6 (3.3-5.1) mmol/L Chloride 103 (96-108) mmol/L Carbon Dioxide 22 (22-30) mmol/L BUN 18 (6-20) mg/dl Creatinine 0.8 (0.7-1.2) mg/dl Glucose 89 (70-105) mg/dL Calcium 8.3 L (8.6-10.4) mg/dl Adrenal panel 08/18/19 Range/Units 05:34 Sodium 139 (133-145) mmol/L Potassium 3.6 (3.3-5.1) mmol/L Chloride 103 (96-108) mmol/L Carbon Dioxide 22 (22-30) mmol/L BUN 18 (6-20) mg/dl Creatinine 0.8 (0.7-1.2) mg/dl Glucose 89 (70-105) mg/dL Calcium 8.3 L (8.6-10.4) mg/dl Total Bilirubin 0.5 (0.0-1.0) mg/dL AST 16 (0-37) U/l ALT 11 (0-40) U/l Alkaline Phosphatase 48 (39-117) U/L Total Protein 6.0 (5.9-8.4) gm/dL Albumin 3.6 (3.2-5.2) gm/dL Assessment and Plan (1) Status post colostomy takedown Status: Acute Assessment and plan: Patient is clinically stable Pantoprazole 40 mg IV every 12 hours Current Visit: Yes - Time Spent With Patient Total time spent is greater than 50% in coordination of care (as documented) at patient's floor/unit and/or counseling patient:
[2019-08-19] MEDS: HYDROmorphone 1 MG/ML SYRINGE IV PRN ×7 (02:40→22:55)
[2019-08-19] MEDS: 0.9 % SODIUM CHLORIDE 1,000 ML IV SCH ×4 (03:30→23:10)
[2019-08-19] MEDS: ONDANSETRON 4 MG/2 ML VIAL IV PRN (04:25)
[2019-08-19] MEDS: ACETAMINOPHEN 1,000 MG/100 ML BOTTLE IV PRN ×3 (06:00→18:39)
[2019-08-19] MEDS: METOCLOPRAMIDE 10 MG/2 ML VIAL IV SCH ×3 (06:00→17:02)
[2019-08-19 06:25] LABS: Basophils # (Auto) 0.07 K/mcL (0.00-0.30); Basophils % (Auto) 0.6 % (0.0-2.0); Eosinophils # (Auto) 0.09 K/mcL (0.00-0.70); Eosinophils % (Auto) 0.8 % (0.0-7.0); Granulocytes % (Auto) 82.3 % (38.0-78.0); Hematocrit 38.6 % (40.1-51.0); Hemoglobin 12.7 g/dL (13.7-17.5); Lymphocytes # (Auto) 1.13 K/mcL (1.50-4.80); Lymphocytes % (Auto) 10.1 % (15.5-49.0); Mean Cell Volume 89.1 fL (80.0-100.0); Mean Corpuscular HGB Conc 32.9 g/dL (31.0-36.0); Mean Platelet Volume 11.3 fL (7.4-10.4); Monocytes # (Auto) 0.69 K/mcL (0.10-0.90); Monocytes % (Auto) 6.2 % (1.0-12.0); Platelet Count 176 K/mcL (140-440); RBC 4.33 M/mcL (4.63-6.08); Red Cell Distribution Width 13.1 % (11.5-14.5); WBC 11.2 K/mcL (4.50-11.00)
[2019-08-19] MEDS: 0.9 % SODIUM CHLORIDE 10 ML SYRINGE IV SCH ×3 (06:37→21:21)
[2019-08-19 07:11] LABS: ALT/SGPT 11 U/l (0-40); AST/SGOT 16 U/l (0-37); Albumin 3.6 gm/dL (3.2-5.2); Albumin/Globulin Ratio 1.3 (1.0-2.3); Alkaline Phosphatase 51 U/L (39-117); Bilirubin,Direct < 0.2 mg/dL (0.0-0.3); Bilirubin,Total 0.5 mg/dL (0.0-1.0); Blood Urea Nitrogen 13 mg/dl (6-20); Calcium 8.4 mg/dl (8.6-10.4); Carbon Dioxide 23 mmol/L (22-30); Chloride 100 mmol/L (96-108); Globulin 2.7 gm/dL (2.2-3.7); Glomerular Filtration Rate 107; Glucose 76 mg/dL (70-105); Lactate Dehydrogenase 146 U/L (94-250); Triglycerides 153 mg/dl (<150)
[2019-08-19 07:19] LABS: Phosphorous 2.3 mg/dL (2.7-4.5)
[2019-08-19] MEDS: PANTOPRAZOLE 40 MG VIAL IV SCH ×2 (07:29→16:16)
[2019-08-19] MEDS ORDERED: POTASSIUM PHOSPHATE 40 MEQ in DEXTROSE 5% IN WATER 500 ML IV ONE (19:13)
--- NOTE | 2019-08-19 19:15 | General Surgery Progress Note ---
SUBJECTIVE Subjective Patient information: Note initiated : 08/19/19 at 7:15 pm Service Date, if different from initiated Date: [] Patient: Ramakrishna Tinajero 54 y/o M admitted on 08/17/19 for Colostomy Closure. Chief Complaint: [] patient is improved. He has mild nausea but no vomiting. He says a small amount of flatus. NURIA drainage is serosanguineous. Potassium 3.5, BUN 13, creatinine 0.7, phosphorus 2.3, white count 11.2, hemoglobin 12.7, hematocrit 38.6. Constitutional Vitals: Vital Signs Temp Pulse Resp BP Pulse Ox 98.1 F 69 16 133/78 96 08/19/19 16:00 08/19/19 16:00 08/19/19 16:00 08/19/19 16:00 08/19/19 16:00 Period Temp Pulse Resp BP Sys/Rashid Pulse Ox Last 24 Hr 97.5 F-99.4 F 69-104 16-18 121-147/78-90 92-96 Intake and Output 08/19/19 08/19/19 08/19/19 05:59 13:59 21:59 Intake Total 1390 1200 1070 Output Total 2665 2150 820 Balance -1275 -950 250 Intake & Output: Intake & Output 08/19/19 08/19/19 08/19/19 05:59 13:59 21:59 Intake Total 1390 1200 1070 Output Total 2665 2150 820 Balance -1275 -950 250 Intake: IV 1040 1200 790 Sodium Chloride 0.9% 1,000 ml @ 940 1000 790 125 mls/hr IV .Q8H [facility] Rx#: [id number] Oral 350 280 Output: Gastric Drainage 1850 1200 300 Left Nare NG/OG 1850 1200 300 Drainage 15 20 Right Lower NURIA Drain 15 20 Urine Catheter Amount 800 950 250 Void Amount 250 Other: Urine Appearance Clear Clear Uretheral (Plummer) Clear Urine Color Dark Yellow Straw Light Olivia Uretheral (Plummer) Dark Yellow Urine Odor Normal Uretheral (Plummer) Normal Eye Eye exam: Present EOMI and normal appearance Pupils: Present PERRL ENT ENT exam: Present mucous membranes moist, normal exam, normal external ear exam and normal oropharynx Neck Neck exam: Present full ROM and normal inspection; Absent lymphadenopathy, tenderness and thyromegaly Respiratory Respiratory exam: Present normal respiratory exam and CTAB; Absent rales, respiratory distress, rhonchi and wheezes Cardiovascular Cardiovascular exam: Present normal rate and rhythm, RRR, +S1 and +S2; Absent gallop and JVD GI/Abdominal GI/Abdominal exam: Present normal bowel sounds, distended (mild abdominal distention) and tenderness; Absent mass Additional comments: mild incisional tenderness Extremities Exam Extremities exam: Present full ROM, normal inspection and neurovascular intact; Absent pedal edema and tenderness Back Exam Back exam: Present full ROM and normal inspection; Absent CVA tenderness (L) and CVA tenderness (R) Neurological Exam Neurological exam: Present alert, CN II-XII intact, normal gait, oriented X3 and reflexes normal; Absent motor sensory deficit Psychiatric Psychiatric exam: Present normal affect and normal mood Skin Skin exam: Present normal color; Absent cyanosis, pallor, rash and urticaria A/P Assessment and plan (1) Status post colostomy takedown: Status: Acute Comment: patient is doing well. IV saline locked and he is advanced to GI soft diet Time Spent With Patient Time: Total time spent is greater than 50% in coordination of care (as documented) at patient's floor/unit and/or counseling patient:
[2019-08-19] MEDS ORDERED: POTASSIUM PHOSPHATE 66 MEQ/15 ML VIAL IV ONE (20:20)
[2019-08-20] MEDS: METOCLOPRAMIDE 10 MG/2 ML VIAL IV SCH ×5 (00:47→23:22)
[2019-08-20] MEDS: ACETAMINOPHEN 1,000 MG/100 ML BOTTLE IV PRN ×4 (00:47→19:04)
[2019-08-20] MEDS: HYDROmorphone 1 MG/ML SYRINGE IV PRN ×5 (03:31→20:31)
[2019-08-20] MEDS: 0.9 % SODIUM CHLORIDE 1,000 ML IV SCH ×4 (04:12→14:39)
[2019-08-20] MEDS: 0.9 % SODIUM CHLORIDE 10 ML SYRINGE IV SCH ×3 (04:13→22:22)
[2019-08-20] MEDS: PANTOPRAZOLE 40 MG VIAL IV SCH ×2 (06:42→17:14)
[2019-08-20 06:43] LABS: Basophils # (Auto) 0.06 K/mcL (0.00-0.30); Basophils % (Auto) 0.6 % (0.0-2.0); Eosinophils # (Auto) 0.52 K/mcL (0.00-0.70); Granulocytes % (Auto) 70.2 % (38.0-78.0); Hemoglobin 12.3 g/dL (13.7-17.5); Lymphocytes # (Auto) 1.69 K/mcL (1.50-4.80); Lymphocytes % (Auto) 16.3 % (15.5-49.0); Mean Cell Volume 89.8 fL (80.0-100.0); Mean Corpuscular HGB Conc 33.2 g/dL (31.0-36.0); Mean Platelet Volume 11.3 fL (7.4-10.4); Monocytes # (Auto) 0.82 K/mcL (0.10-0.90); Monocytes % (Auto) 7.9 % (1.0-12.0); Platelet Count 188 K/mcL (140-440); RBC 4.12 M/mcL (4.63-6.08); Red Cell Distribution Width 13.3 % (11.5-14.5); WBC 10.4 K/mcL (4.50-11.00)
[2019-08-20 07:18] LABS: ALT/SGPT 11 U/l (0-40); AST/SGOT 15 U/l (0-37); Albumin 3.6 gm/dL (3.2-5.2); Albumin/Globulin Ratio 1.2 (1.0-2.3); Alkaline Phosphatase 54 U/L (39-117); Bilirubin,Direct < 0.2 mg/dL (0.0-0.3); Bilirubin,Total 0.5 mg/dL (0.0-1.0); Blood Urea Nitrogen 7 mg/dl (6-20); C-Reactive Protein 15.7 mg/dl (0.0-0.8); Calcium 8.7 mg/dl (8.6-10.4); Carbon Dioxide 22 mmol/L (22-30); Chloride 103 mmol/L (96-108); Globulin 2.9 gm/dL (2.2-3.7); Glomerular Filtration Rate 107; Glucose 73 mg/dL (70-105); Lactate Dehydrogenase 154 U/L (94-250); Triglycerides 134 mg/dl (<150)
[2019-08-20 07:30] LABS: Uric Acid 8.5 mg/dL (2.5-8.0)
--- NOTE | 2019-08-20 14:14 | General Surgery Progress Note ---
SUBJECTIVE Subjective Patient information: Note initiated : 08/20/19 at 2:10 pm Service Date, if different from initiated Date: [] Patient: Ramakrishna Tinajero 54 y/o M admitted on 08/17/19 for Colostomy Closure. Chief Complaint: [] patient is doing well he's not had flatus for. He denies nausea. He had some crampy abdominal pain. He has not had abdominal distention. He has been afebrile. Constitutional Vitals: Vital Signs Temp Pulse Resp BP Pulse Ox 98.4 F 96 H 16 141/88 97 08/20/19 13:17 08/20/19 13:17 08/20/19 13:17 08/20/19 13:17 08/20/19 13:17 Period Temp Pulse Resp BP Sys/Rashid Pulse Ox Last 24 Hr 98 F-98.8 F 69-96 16-18 125-141/78-88 93-97 Intake and Output 08/20/19 08/20/19 08/20/19 05:59 13:59 21:59 Intake Total 1270 200 Output Total 1525 300 Balance -255 -100 Intake & Output: Intake & Output 08/20/19 08/20/19 08/20/19 05:59 13:59 21:59 Intake Total 1270 200 Output Total 1525 300 Balance -255 -100 Intake: IV 1100 200 Sodium Chloride 0.9% 1,000 ml @ 1000 125 mls/hr IV .Q8H [facility] Rx#: [id number] Oral 170 Output: Gastric Drainage 800 Left Nare NG/OG 800 Drainage 25 Right Lower NURIA Drain 25 Void Amount 700 300 Other: Urine Appearance Clear Urine Color Bright Yellow Bright Yellow Urine Odor Normal Normal Head Head exam: Present atraumatic, normal inspection and normocephalic Eye Eye exam: Present EOMI and PERRL Pupils: Present normal accommodation and PERRL ENT ENT exam: Present mucous membranes moist and normal exam Neck Neck exam: Present full ROM and normal inspection; Absent lymphadenopathy, tenderness and thyromegaly Respiratory Respiratory exam: Present normal respiratory exam and CTAB; Absent rales, rhonchi and wheezes Cardiovascular Cardiovascular exam: Present normal rate and rhythm, RRR, +S1 and +S2; Absent gallop and JVD GI/Abdominal Additional comments: mild tenderness to palpation; good active bowel sounds; incision looks good; Extremities Exam Extremities exam: Present full ROM; Absent calf tenderness and pedal edema Neurological Exam Neurological exam: Present CN II-XII intact; Absent alert, motor sensory deficit and oriented X3 Skin Skin exam: Absent cyanosis A/P Assessment and plan (1) Status post colostomy takedown: Status: Acute Comment: patient is doing well. He has not had flatus so far. He will be given potassium phosphate and magnesium riders. Time Spent With Patient Time: Total time spent is greater than 50% in coordination of care (as documented) at patient's floor/unit and/or counseling patient:
[2019-08-20] MEDS ORDERED: MAGNESIUM SULFATE 32.48 MEQ in DEXTROSE 5% IN WATER 50 ML IV ONE (14:16)
[2019-08-20] MEDS ORDERED: MAGNESIUM SULFATE 4 GM/100 ML BAG IV ONE (15:00)
[2019-08-20] MEDS ORDERED: POTASSIUM PHOSPHATE 40 MEQ in DEXTROSE 5% IN WATER 500 ML IV ONE (16:00)
[2019-08-21] MEDS: ACETAMINOPHEN 1,000 MG/100 ML BOTTLE IV PRN ×4 (01:03→19:17)
[2019-08-21] MEDS: 0.9 % SODIUM CHLORIDE 1,000 ML IV SCH ×4 (01:03→19:08)
[2019-08-21] MEDS: HYDROmorphone 1 MG/ML SYRINGE IV PRN (04:50)
[2019-08-21] MEDS: 0.9 % SODIUM CHLORIDE 10 ML SYRINGE IV SCH ×3 (05:02→21:47)
[2019-08-21] MEDS: METOCLOPRAMIDE 10 MG/2 ML VIAL IV SCH ×4 (05:26→23:36)
[2019-08-21] MEDS: PANTOPRAZOLE 40 MG VIAL IV SCH ×2 (07:24→17:55)
[2019-08-22] MEDS: ACETAMINOPHEN 1,000 MG/100 ML BOTTLE IV PRN ×4 (01:11→19:49)
[2019-08-22] MEDS: 0.9 % SODIUM CHLORIDE 1,000 ML IV SCH ×3 (04:10→22:09)
[2019-08-22] MEDS: HYDROmorphone 1 MG/ML SYRINGE IV PRN (04:14)
[2019-08-22] MEDS: METOCLOPRAMIDE 10 MG/2 ML VIAL IV SCH ×3 (05:20→17:42)
[2019-08-22] MEDS: 0.9 % SODIUM CHLORIDE 10 ML SYRINGE IV SCH ×3 (05:29→22:09)
[2019-08-22 06:40] LABS: Basophils # (Auto) 0.08 K/mcL (0.00-0.30); Basophils % (Auto) 0.9 % (0.0-2.0); Eosinophils # (Auto) 0.79 K/mcL (0.00-0.70); Eosinophils % (Auto) 8.4 % (0.0-7.0); Granulocytes % (Auto) 63.7 % (38.0-78.0); Hematocrit 37.7 % (40.1-51.0); Hemoglobin 12.8 g/dL (13.7-17.5); Lymphocytes # (Auto) 1.74 K/mcL (1.50-4.80); Lymphocytes % (Auto) 18.6 % (15.5-49.0); Mean Cell Volume 88.5 fL (80.0-100.0); Mean Platelet Volume 10.2 fL (7.4-10.4); Monocytes # (Auto) 0.79 K/mcL (0.10-0.90); Monocytes % (Auto) 8.4 % (1.0-12.0); Platelet Count 240 K/mcL (140-440); RBC 4.26 M/mcL (4.63-6.08); Red Cell Distribution Width 13.3 % (11.5-14.5); WBC 9.4 K/mcL (4.50-11.00)
[2019-08-22 07:04] LABS: ALT/SGPT 10 U/l (0-40); AST/SGOT 13 U/l (0-37); Albumin 3.9 gm/dL (3.2-5.2); Albumin/Globulin Ratio 1.2 (1.0-2.3); Alkaline Phosphatase 51 U/L (39-117); Bilirubin,Direct < 0.2 mg/dL (0.0-0.3); Bilirubin,Total 0.5 mg/dL (0.0-1.0); Calcium 8.9 mg/dl (8.6-10.4); Chloride 105 mmol/L (96-108); Globulin 3.2 gm/dL (2.2-3.7); Glomerular Filtration Rate 101; Glucose 70 mg/dL (70-105); Lactate Dehydrogenase 163 U/L (94-250); Triglycerides 155 mg/dl (<150)
[2019-08-22] MEDS: PANTOPRAZOLE 40 MG VIAL IV SCH ×2 (07:04→17:42)
[2019-08-22 07:14] LABS: Blood Urea Nitrogen 5 mg/dl (6-20); Carbon Dioxide 12 mmol/L (22-30); Phosphorous 2.3 mg/dL (2.7-4.5); Uric Acid 10.7 mg/dL (2.5-8.0)
--- NOTE | 2019-08-22 16:21 | General Surgery Progress Note ---
SUBJECTIVE Subjective Patient information: Note initiated : 08/22/19 at 4:17 pm Service Date, if different from initiated Date: [] Patient: Ramakrishna Tinajero 54 y/o M admitted on 08/17/19 for Colostomy Closure. Chief Complaint: [] Interval history: Narrative: patient continues to improve. He has had multiple bowel movements and is passing large volumes of flatus. He has tolerated liquid diet without difficulty. NUIRA drainage is serosanguineous. Constitutional Vitals: Vital Signs Temp Pulse Resp BP Pulse Ox 97.9 F 92 H 18 131/89 97 08/22/19 12:00 08/22/19 12:00 08/22/19 12:00 08/22/19 12:00 08/22/19 12:00 Period Temp Pulse Resp BP Sys/Rashid Pulse Ox Last 24 Hr 97.9 F-98.9 F 79-93 16-18 124-140/82-96 96-98 Intake and Output 08/22/19 08/22/19 08/22/19 05:59 13:59 21:59 Intake Total 1280 1700 100 Output Total 775 870 310 Balance 505 830 -210 Weight 151 lb 12.8 oz Patient Weight 08/23/19 05:59 Weight 151 lb 12.8 oz Intake & Output: Intake & Output 08/22/19 08/22/19 08/22/19 05:59 13:59 21:59 Intake Total 1280 1700 100 Output Total 775 870 310 Balance 505 830 -210 Weight 151 lb 12.8 oz Intake: IV 1100 1100 100 Sodium Chloride 0.9% 1,000 ml @ 1000 1000 125 mls/hr IV .Q8H [facility] Rx#: [id number] Oral 180 600 Tube Feeding 0 Output: Gastric Drainage 450 Left Nare NG/OG 450 Drainage 20 10 Right Lower NURIA Drain 20 10 Void Amount 325 850 300 Other: Meal Breakfast Percent of Meal Consumed 100% Feeding Ability Independent Urine Appearance Clear Clear Urine Color Bright Yellow Bright Yellow Urine Odor Normal Normal Stool Size Moderate Stool Color Brown Stool Consistency Loose # Bowel Movements 1 Neck Neck exam: Present full ROM and normal inspection; Absent tenderness and thyrome desmond Respiratory Respiratory exam: Present normal respiratory exam and CTAB; Absent rales, rhonchi and wheezes Cardiovascular Cardiovascular exam: Present normal rate and rhythm, RRR, +S1 and +S2; Absent ga llop GI/Abdominal GI/Abdominal exam: Present normal bowel sounds, soft and tenderness (mild tenderness of incision; NURIA drainage is serosanguineous; hyperactive bowel sounds); Absent distended Extremities Exam Extremities exam: Present full ROM, normal capillary refill, normal inspection and neurovascular intact; Absent calf tenderness Back Exam Back exam: Present full ROM and normal inspection; Absent tenderness Neurological Exam Neurological exam: Present alert, CN II-XII intact, normal gait, oriented X3 and reflexes normal Psychiatric Psychiatric exam: Present normal affect and normal mood; Absent suicidal ideation Skin Skin exam: Absent cyanosis and erythema A/P Assessment and plan (1) Status post colostomy takedown: Status: Acute Comment: patient is doing well. IV saline locked and he is advanced to GI soft diet Narrative A/P Narrative: Narrative: Time Spent With Patient Time: Total time spent is greater than 50% in coordination of care (as documented) at patient's floor/unit and/or counseling patient:
[2019-08-23] MEDS: METOCLOPRAMIDE 10 MG/2 ML VIAL IV SCH ×3 (00:01→11:48)
[2019-08-23] MEDS: ACETAMINOPHEN 1,000 MG/100 ML BOTTLE IV PRN ×3 (01:30→15:08)
[2019-08-23] MEDS: 0.9 % SODIUM CHLORIDE 1,000 ML IV SCH ×2 (02:35→10:58)
[2019-08-23] MEDS: 0.9 % SODIUM CHLORIDE 10 ML SYRINGE IV SCH ×2 (05:59→16:43)
[2019-08-23] MEDS: PANTOPRAZOLE 40 MG VIAL IV SCH (07:22)
[2019-08-23 07:26] LABS: Basophils # (Auto) 0.09 K/mcL (0.00-0.30); Basophils % (Auto) 1.1 % (0.0-2.0); Eosinophils # (Auto) 0.66 K/mcL (0.00-0.70); Eosinophils % (Auto) 7.9 % (0.0-7.0); Granulocytes % (Auto) 53.8 % (38.0-78.0); Hematocrit 37.8 % (40.1-51.0); Hemoglobin 13.1 g/dL (13.7-17.5); Lymphocytes # (Auto) 2.32 K/mcL (1.50-4.80); Lymphocytes % (Auto) 27.8 % (15.5-49.0); Mean Cell Volume 85.7 fL (80.0-100.0); Mean Corpuscular HGB Conc 34.7 g/dL (31.0-36.0); Mean Platelet Volume 10.3 fL (7.4-10.4); Monocytes # (Auto) 0.79 K/mcL (0.10-0.90); Monocytes % (Auto) 9.4 % (1.0-12.0); Platelet Count 278 K/mcL (140-440); RBC 4.41 M/mcL (4.63-6.08); Red Cell Distribution Width 13.2 % (11.5-14.5); WBC 8.4 K/mcL (4.50-11.00)
[2019-08-23 07:40] LABS: ALT/SGPT 9 U/l (0-40); AST/SGOT 13 U/l (0-37); Albumin 3.7 gm/dL (3.2-5.2); Albumin/Globulin Ratio 1.2 (1.0-2.3); Alkaline Phosphatase 51 U/L (39-117); Bilirubin,Direct < 0.2 mg/dL (0.0-0.3); Bilirubin,Total 0.5 mg/dL (0.0-1.0); Calcium 8.9 mg/dl (8.6-10.4); Chloride 103 mmol/L (96-108); Globulin 3.2 gm/dL (2.2-3.7); Glucose 97 mg/dL (70-105); Lactate Dehydrogenase 169 U/L (94-250); Triglycerides 134 mg/dl (<150)
[2019-08-23 07:42] LABS: Blood Urea Nitrogen 3 mg/dl (6-20); Carbon Dioxide 17 mmol/L (22-30); Glomerular Filtration Rate 114; Phosphorous 1.9 mg/dL (2.7-4.5); Uric Acid 8.1 mg/dL (2.5-8.0)
--- NOTE | 2019-08-23 15:16 | Discharge Summary ---
Discharge Provider Provider Patient information: Note initiated : 08/23/19 at 3:08 pm Service Date, if different from initiated Date: [] Patient: Ramakrishna Tinajero 54 y/o M admitted on 08/17/19 for Colostomy Closure. Chief Complaint: [] Date of admission: 08/17/19 04:58 Discharge date: 08/23/19 Primary care physician: Vesna Tapia PA-C Admitting clinician: Felicia Harkins Attending physician on admission: Felicia Harkins Attending physician on discharge: Felicia Harkins Discharging clinician: Felicia Harkins COURSE Hospital Course Hospital Course: 54-year-old male with history of colostomy takedown on August 19. He had rather uneventful course and started passing flatus the third postoperative day. Diet was gradually advanced he had multiple bowel movements. He is now clinically stable and asymptomatic. He has no abdominal pain. His NURIA drain has serosanguineous drainage. He is stable for discharge. Discharge diagnosis: colostomy status Reason for admission: postoperative care status post colostomy takedown Procedures: colostomy takedown Pertinent studies/significant findings: none Time Spent with Patient Time attestation: Total time spent providing and/or coordinating discharge services: Physical Examination Vital Signs Vital signs: Temp Pulse Resp BP Pulse Ox 98.5 F 104 H 20 135/81 96 08/23/19 12:00 08/23/19 12:00 08/23/19 12:00 08/23/19 12:00 08/23/19 12:00 ENT ENT exam: normal pinna, normal nares, normal mucosa and no hearing loss Head Head exam IM: Present atraumatic, normal inspection and normocephalic Neck Neck exam: no masses, no bruits, trachea midline, no lymphadenopathy and no venous distension Cardiovascular Cardiovascular exam IM: Present normal rate and rhythm, RRR, +S1 and +S2; Absent gallop and JVD Respiratory Respiratory exam: normal expansion, normal respiratory effort, clear to percussion, clear to auscultation and other Abdomen Abdomen: Present tender (mild tenderness of incisions; no bleeding noted; good active bowel sounds) Integumentary Integumentary: Present no rash, no growths, no abnormal pigmentation and other Neurologic Neurologic: Present normal coordination, normal sensation, disoriented and other Musculoskeletal Musculoskeletal: Present normal gait, normal posture and other Psychiatric Psychiatric: Present oriented to time, oriented to person, oriented to place, speech is normal, memory intact and other Discharge Plan Patient/Caregiver Discharge Instructions Activity: increase activity as tolerated and resume usual activities as tolerated Diet: Regular Diet Prescriptions: Continued polyethylene glycol 3350 17 GM packet 17 gm PO DAILY RF: 0 acetaminophen 650 MG tablet extended release 1,300 mg PO DAILY PRN (Reason: Pain) RF: 0 gitxeyqt-meq-GT-lycopen-lutein 1 EACH tablet 1 each PO DAILY RF: 0 ephedrine sulfate-guaifenesin 1 EACH tablet 1 each PO Q4H PRN (Reason: Shortness Of Breath) RF: 0 Follow Up Plan Follow up with: Felicia Harkins MD [Physician] - 09/05/19 8:45 am Patient Disposition: Home, Self-Care Assessment: patient is stable satisfactory condition Prognosis: Good Rehab Potential: Good I certify that the patient requires SNF services: No Overall status at discharge: patient is progressing back to baseline Discharge Orders: Discharge Order (Routine); Ordered 08/23/19 Ordered By: Felicia Harkins Pending Pending Pending: Resuscitation Status Full Code Diet GI Soft/Transitional Start ThuAug 22 814 Hydromorphone HCl (Dilaudid) 1 mg IV Q2HP PRN; Protocol PRN Reason: Per Pain Protocol Last Admin: 08/22/19 04:14 Dose: 1 mg Documented by: Admin: 08/21/19 04:50 Dose: 1 mg Documented by: Admin: 08/20/19 20:31 Dose: 1 mg Documented by: Admin: 08/20/19 14:57 Dose: 1 mg Documented by: Admin: 08/20/19 11:01 Dose: 1 mg Documented by: Admin: 08/20/19 08:43 Dose: 1 mg Documented by: Admin: 08/20/19 03:31 Dose: 1 mg Documented by: Admin: 08/19/19 22:55 Dose: 1 mg Documented by: Admin: 08/19/19 20:55 Dose: 1 mg Documented by: Admin: 08/19/19 16:56 Dose: 1 mg Documented by: Admin: 08/19/19 14:10 Dose: 1 mg Documented by: Admin: 08/19/19 10:38 Dose: 1 mg Documented by: Admin: 08/19/19 07:38 Dose: 1 mg Documented by: Admin: 08/19/19 02:40 Dose: 1 mg Documented by: Admin: 08/18/19 22:02 Dose: 1 mg Documented by: Admin: 08/18/19 19:04 Dose: 1 mg Documented by: Admin: 08/18/19 16:01 Dose: 1 mg Documented by: Admin: 08/18/19 12:58 Dose: 1 mg Documented by: Admin: 08/18/19 10:29 Dose: 1 mg Documented by: Admin: 08/18/19 08:11 Dose: 1 mg Documented by: Admin: 08/18/19 06:04 Dose: 1 mg Documented by: Admin: 08/18/19 03:53 Dose: 1 mg Documented by: Admin: 08/17/19 23:49 Dose: 1 mg Documented by: Admin: 08/17/19 21:15 Dose: 1 mg Documented by: Admin: 08/17/19 15:31 Dose: 1 mg Documented by: Admin: 08/17/19 13:35 Dose: 1 mg Documented by: F Sodium Chloride (Sodium Chloride 0.9%) 1,000 mls @ 125 mls/hr IV .Q8H [facility] Admin: 08/23/19 10:58 Dose: Not Given Documented by: Infusion: 08/23/19 10:55 Dose: 125 mls/hr Documented by: Admin: 08/23/19 02:35 Dose: Not Given Documented by: Admin: 08/22/19 22:09 Dose: 125 mls/hr Documented by: Infusion: 08/22/19 21:35 Dose: 125 mls/hr Documented by: Admin: 08/22/19 12:19 Dose: 125 mls/hr Documented by: Infusion: 08/22/19 12:10 Dose: 125 mls/hr Documented by: Admin: 08/22/19 04:10 Dose: 125 mls/hr Documented by: Infusion: 08/22/19 03:08 Dose: 125 mls/hr Documented by: Admin: 08/21/19 19:08 Dose: 125 mls/hr Documented by: Infusion: 08/21/19 18:36 Dose: 125 mls/hr Documented by: Admin: 08/21/19 10:36 Dose: 125 mls/hr Documented by: Infusion: 08/21/19 09:03 Dose: 125 mls/hr Documented by: Admin: 08/21/19 05:02 Dose: Not Given Documented by: Admin: 08/21/19 01:03 Dose: 125 mls/hr Documented by: Infusion: 08/20/19 22:39 Dose: 125 mls/hr Documented by: Admin: 08/20/19 14:39 Dose: 125 mls/hr Documented by: Infusion: 08/20/19 13:36 Dose: 125 mls/hr Documented by: Admin: 08/20/19 11:23 Dose: Not Given Documented by: Admin: 08/20/19 05:36 Dose: 125 mls/hr Documented by: Admin: 08/20/19 04:12 Dose: Not Given Documented by: Infusion: 08/20/19 00:53 Dose: 125 mls/hr Documented by: Admin: 08/19/19 23:10 Dose: Not Given Documented by: Admin: 08/19/19 16:53 Dose: 125 mls/hr Documented by: Infusion: 08/19/19 16:53 Dose: 125 mls/hr Documented by: Admin: 08/19/19 10:34 Dose: 125 mls/hr Documented by: Infusion: 08/19/19 06:08 Dose: 125 mls/hr Documented by: Admin: 08/19/19 03:30 Dose: Not Given Documented by: Admin: 08/18/19 22:08 Dose: 125 mls/hr Documented by: Infusion: 08/18/19 22:08 Dose: 125 mls/hr Documented by: Admin: 08/18/19 14:37 Dose: 125 mls/hr Documented by: Infusion: 08/18/19 13:30 Dose: 125 mls/hr Documented by: Admin: 08/18/19 05:30 Dose: 125 mls/hr Documented by: Infusion: 08/18/19 05:15 Dose: 125 mls/hr Documented by: Admin: 08/17/19 21:15 Dose: 125 mls/hr Documented by: Infusion: 08/17/19 19:56 Dose: 125 mls/hr Documented by: Admin: 08/17/19 11:56 Dose: 125 mls/hr Documented by: IDALMIS Acetaminophen (Ofirmev) 1,000 mg in 100 mls @ 200 mls/hr IV Q6HP PRN; Protocol PRN Reason: PAIN/FEVER > 101 Last Infusion: 08/23/19 08:01 Dose: 200 mls/hr Documented by: Admin: 08/23/19 07:22 Dose: 200 mls/hr Documented by: Infusion: 08/23/19 02:00 Dose: 200 mls/hr Documented by: Admin: 08/23/19 01:30 Dose: 200 mls/hr Documented by: Infusion: 08/22/19 20:59 Dose: 200 mls/hr Documented by: Admin: 08/22/19 19:49 Dose: 200 mls/hr Documented by: Infusion: 08/22/19 14:49 Dose: 200 mls/hr Documented by: Admin: 08/22/19 13:46 Dose: 200 mls/hr Documented by: Infusion: 08/22/19 10:00 Dose: 200 mls/hr Documented by: Admin: 08/22/19 07:45 Dose: 200 mls/hr Documented by: Infusion: 08/22/19 01:41 Dose: 200 mls/hr Documented by: Admin: 08/22/19 01:11 Dose: 200 mls/hr Documented by: Infusion: 08/21/19 19:47 Dose: 200 mls/hr Documented by: Admin: 08/21/19 19:17 Dose: 200 mls/hr Documented by: [email or web address] Infusion: 08/21/19 13:41 Dose: 0 mls/hr Documented by: Admin: 08/21/19 13:11 Dose: 200 mls/hr Documented by: Infusion: 08/21/19 07:55 Dose: 0 mls/hr Documented by: Admin: 08/21/19 07:25 Dose: 200 mls/hr Documented by: Infusion: 08/21/19 01:33 Dose: 200 mls/hr Documented by: Admin: 08/21/19 01:03 Dose: 200 mls/hr Documented by: PAPITRIrvin Infusion: 08/20/19 19:34 Dose: 200 mls/hr Documented by: Admin: 08/20/19 19:04 Dose: 200 mls/hr Documented by: Infusion: 08/20/19 13:33 Dose: 0 mls/hr Documented by: Admin: 08/20/19 13:03 Dose: 200 mls/hr Documented by: Infusion: 08/20/19 07:12 Dose: 0 mls/hr Documented by: Admin: 08/20/19 06:42 Dose: 200 mls/hr Documented by: Infusion: 08/20/19 01:17 Dose: 200 mls/hr Documented by: Admin: 08/20/19 00:47 Dose: 200 mls/hr Documented by: Infusion: 08/19/19 19:09 Dose: 200 mls/hr Documented by: Admin: 08/19/19 18:39 Dose: 200 mls/hr Documented by: Infusion: 08/19/19 13:03 Dose: 0 mls/hr Documented by: Admin: 08/19/19 12:34 Dose: 200 mls/hr Documented by: Infusion: 08/19/19 06:30 Dose: 0 mls/hr Documented by: Admin: 08/19/19 06:00 Dose: 200 mls/hr Documented by: Infusion: 08/19/19 00:08 Dose: 200 mls/hr Documented by: Admin: 08/18/19 23:38 Dose: 200 mls/hr Documented by: Infusion: 08/18/19 18:00 Dose: 0 mls/hr Documented by: Admin: 08/18/19 17:28 Dose: 200 mls/hr Documented by: Infusion: 08/18/19 10:57 Dose: 0 mls/hr Documented by: Admin: 08/18/19 10:27 Dose: 200 mls/hr Documented by: KAVON Metoclopramide HCl (Reglan) 10 mg IV Q6 [facility] Admin: 08/23/19 11:48 Dose: 10 mg Documented by: Admin: 08/23/19 05:59 Dose: 10 mg Documented by: Admin: 08/23/19 00:01 Dose: 10 mg Documented by: Admin: 08/22/19 17:42 Dose: 10 mg Documented by: Admin: 08/22/19 12:19 Dose: 10 mg Documented by: Admin: 08/22/19 05:20 Dose: 10 mg Documented by: Admin: 08/21/19 23:36 Dose: 10 mg Documented by: Admin: 08/21/19 17:55 Dose: 10 mg Documented by: Admin: 08/21/19 11:30 Dose: 10 mg Documented by: Admin: 08/21/19 05:26 Dose: 10 mg Documented by: Admin: 08/20/19 23:22 Dose: 10 mg Documented by: Admin: 08/20/19 17:14 Dose: 10 mg Documented by: Admin: 08/20/19 12:02 Dose: 10 mg Documented by: Admin: 08/20/19 05:30 Dose: 10 mg Documented by: Admin: 08/20/19 00:47 Dose: 10 mg Documented by: Admin: 08/19/19 17:02 Dose: 10 mg Documented by: Admin: 08/19/19 11:39 Dose: 10 mg Documented by: Admin: 08/19/19 06:00 Dose: 10 mg Documented by: Admin: 08/18/19 23:45 Dose: 10 mg Documented by: Admin: 08/18/19 17:28 Dose: 10 mg Documented by: Admin: 08/18/19 11:51 Dose: 10 mg Documented by: Admin: 08/18/19 06:01 Dose: 10 mg Documented by: Admin: 08/17/19 23:50 Dose: 10 mg Documented by: Admin: 08/17/19 17:42 Dose: 10 mg Documented by: Admin: 08/17/19 12:22 Dose: 10 mg Documented by: IDALMIS Ondansetron HCl (Zofran) 4 mg IV Q4HP PRN; Protocol PRN Reason: Nausea/Vomiting Last Admin: 08/19/19 04:25 Dose: 4 mg Documented by: Admin: 08/18/19 16:06 Dose: 4 mg Documented by: Admin: 08/18/19 02:11 Dose: 4 mg Documented by: WANDER Pantoprazole Sodium (Protonix) 40 mg IV BIDAC [facility] Admin: 08/23/19 07:22 Dose: 40 mg Documented by: Admin: 08/22/19 17:42 Dose: 40 mg Documented by: Admin: 08/22/19 07:04 Dose: 40 mg Documented by: Admin: 08/21/19 17:55 Dose: 40 mg Documented by: Admin: 08/21/19 07:24 Dose: 40 mg Documented by: Admin: 08/20/19 17:14 Dose: 40 mg Documented by: Admin: 08/20/19 06:42 Dose: 40 mg Documented by: Admin: 08/19/19 16:16 Dose: 40 mg Documented by: Admin: 08/19/19 07:29 Dose: 40 mg Documented by: KAVON Sodium Chloride (Saline Flush) 10 ml IV Q8 [facility] Last Admin: 08/23/19 05:59 Dose: 10 ml Documented by: Admin: 08/22/19 22:09 Dose: Not Given Documented by: Admin: 08/22/19 13:03 Dose: Not Given Documented by: Admin: 08/22/19 05:29 Dose: Not Given Documented by: Admin: 08/21/19 21:47 Dose: Not Given Documented by: Admin: 08/21/19 13:40 Dose: Not Given Documented by: Admin: 08/21/19 05:02 Dose: Not Given Documented by: Admin: 08/20/19 22:22 Dose: Not Given Documented by: Admin: 08/20/19 13:48 Dose: Not Given Documented by: Admin: 08/20/19 04:13 Dose: Not Given Documented by: Admin: 08/19/19 21:21 Dose: Not Given Documented by: Admin: 08/19/19 13:54 Dose: Not Given Documented by: Admin: 08/19/19 06:37 Dose: Not Given Documented by: Admin: 08/18/19 20:03 Dose: Not Given Documented by: Admin: 08/18/19 13:06 Dose: Not Given Documented by: Admin: 08/18/19 06:07 Dose: Not Given Documented by: Admin: 08/17/19 21:16 Dose: Not Given Documented by: Admin: 08/17/19 13:36 Dose: Not Given Documented by: Enrique Shift Summary 08/23/19 04:17 Shift Summary by Ashley Duran The patient is alert and oriented times four, he is up ad ildefonso with 1 SBA to ambulate in the hallways this evening and his spouse visited him in his room. He is tolerating a GI soft transitional diet well, he has denied nausea, active bowel tones, passing flatus and reports BM prior shift. NURIA to RLQ putting out serous fluid, midline and left lower quadrant abdominal incision with kashmir and Tegaderm CDI. IV to lower right forearm SL, he has received Ofirmev twice this shift PRN for mild abdominal pain (next dose available at 0730) and his symptoms were well palliated. He has shahriar hose in place bilaterally and sat up in the chair several times and rested well this shift per his report. His plan is to discharge home with his spouse when able, will update shift summary report at bedside. Initialized on 08/23/19 04:17 - END OF NOTE
--- NOTE | 2019-09-05 14:06 | Operative Note ---
DATE OF OPERATION: 08/17/2019 PREOPERATIVE DIAGNOSIS: Colostomy status. POSTOPERATIVE DIAGNOSIS: Colostomy status. PROCEDURE: Colostomy takedown. SURGEON: Felicia Harkins M.D. FINDINGS: Most of the inflammation had resolved. There was adequate length of the distal rectal stump for an end-to-end anastomosis. DESCRIPTION OF PROCEDURE: Under general anesthesia, the ostomy site was closed with running locking 2-0 silk. The abdomen was then prepped and draped and covered with Vi-Drape. A timeout procedure was carried out. Midline incision was made through the old incision. There were minimal adhesions in the pelvis. The rectal stump was easily identified. It was inspected to make sure that there was adequate length. Once this was assured, the stoma was dissected from the ___ to the ___. It was then circumferentially dissected from the abdominal wall. The end of the stoma was transected using a TX 60 stapler. The rectal stump end was opened and the mucosal wall had good bleeding. The end of the descending colon was then gently placed onto the pelvis and the two areas came together nicely. An end-to-end anastomosis was carried out with an outer row of 2-0 Prolene and an ___ row of running locking 2-0 Monocryl. The anastomosis was stable without tension with an adequate opening noted. Irrigation was carried out. A 10 Hua drain was placed and brought out in the right upper quadrant. Sponge, needle, instrument, and blade counts were verified as correct. The ostomy site was closed with two layers of #1 Prolene. The peritoneum and fascia were closed with a running locking 4-0 Prolene. Subcutaneous tissue was irrigated and closed with 2-0 Monocryl. Skin was closed with kashmir. The subcutaneous tissue at the stoma site was closed with 2-0 Monocryl and the skin was closed with kashmir. Tegaderm dressing was placed. The patient tolerated the procedure well. He was awakened, transferred to a bed, and taken to the postoperative care unit in stable and satisfactory condition. LCS:sal Job ID: [id number] Doc ID: [id number] Felicia Harkins M.D.
== END 2019-08-23 16:26 | disposition home or self-care (01) | DRG 331 ==
LOC: MEDSUR 04:58 → EDSTATUS 09:30
PROVIDERS: ADMIT Family Medicine Adult Medicine; ATTEND Family Medicine Adult Medicine